=== PATIENT | male | born 1970 | race Caucasian/White ===

== ENCOUNTER 2017-03-12 20:00 | Emergency (ER) | payer BC, OTHER ==
[2017-03-12] MEDS ORDERED: Ibuprofen 800 MG Tab PO ONE (20:26)
--- NOTE | 2017-03-12 20:29 | EDM.PDOC ---
ED HPI GENERAL MEDICAL PROBLEM - General Chief Complaint: Lower Extremity Injury/Pain Stated Complaint: FRACTION LT LEG Time Seen by Provider: 03/12/17 20:22 - History of Present Illness INITIAL COMMENTS - FREE TEXT/NARRATIVE: HISTORY AND PHYSICAL: History of present illness: The patient is a 47-year-old male who presents with complaints of left lower leg and ankle pain that started 4 days ago. The patient states he [facility] and had shackles on his ankles and he tripped going up the stairs but did not complete full down. Since that time he has had pain in the area and he is concerned that the area is broken. He has a history of a fracture with surgical repair in the past when he was 16 years old. He says the pain is worse when he weight bears and moves his foot up and down. He has no neurosensory changes in the foot. He has no proximal knee hip or thigh pain. He has no head neck or back pain and no systemic complaints. The patient states that he has not taken any medication for the discomfort. He has been walking on it and not elevating her icing the area. Review of systems: As per history of present illness and below otherwise all systems reviewed and negative. Past medical history: As per history of present illness and as reviewed below otherwise noncontributory. Surgical history: As per history of present illness and as reviewed below otherwise noncontributory. Social history: No reported history of drug or alcohol abuse. Family history: As per history of present illness and as reviewed below otherwise noncontributory. Physical exam: Gen.: Well-developed well-nourished man who is nontoxic and moves easily in the ED. Vital signs have been reviewed by me HEENT: Atraumatic, normocephalic, negative for conjunctival pallor or scleral icterus, mucous membranes moist, throat clear, neck supple, nontender, trachea midline. Lungs: Clear to auscultation, breath sounds equal bilaterally, chest nontender. Heart: S1S2, regular in rhythm no overt murmurs. Abdomen: Soft, nondistended, nontender. NABS. Pelvis: Stable nontender. Genitourinary: Deferred. Rectal: Deferred. Extremities: Atraumatic throughout all extremities including the left lower leg without any palpable bony deformities. There is mild tenderness and some soft tissue swelling/erythema at the area of the anterior lower leg and ankle again without any ecchymosis deformities or defects. Distally neurovascular is intact and there is no foot tenderness. Proximally the knee thigh and hip are without tenderness or deformities. The legs are, negative for cords or calf pain. Neurovascular unremarkable. Neuro: Awake, alert, oriented. Cranial nerves II through XII unremarkable. Cerebellum unremarkable. Motor and sensory unremarkable throughout. Exam nonfocal. Diagnostics: X-ray left leg and ankle Therapeutics: Motrin Impression: Left lower leg contusion Definitive disposition and diagnosis as appropriate pending reevaluation and review of above. left leg Pain Score (Numeric/FACES): 8 - Related Data Allergies Allergy/AdvReac Type Severity Reaction Status Date / Time No Known Allergies Allergy Verified 03/12/17 20:15 Home Meds: Home Meds . [No Known Home Meds] 03/12/17 [History] Past Medical History - Past Health History Medical/Surgical History: Denies Medical/Surgical History HEENT History: Reports: None Cardiovascular History: Reports: None Respiratory History: Reports: None Gastrointestinal History: Reports: None Genitourinary History: Reports: None Musculoskeletal History: Reports: None Neurological History: Reports: None Psychiatric History: Reports: None Endocrine/Metabolic History: Reports: None Hematologic History: Reports: None Dermatologic History: Reports: None - Infectious Disease History Infectious Disease History: Reports: Chicken Pox, Shingles Social & Family History - Family History Family Medical History: Noncontributory - Tobacco Use Smoking Status *Q: Current Every Day Smoker Years of Tobacco use: 32 Packs/Tins Daily: 1 - Recreational Drug Use Recreational Drug Use: No Review of Systems - Review of Systems Review Of Systems: ROS reveals no pertinent complaints other than HPI. ED EXAM, GENERAL - Physical Exam Exam: See Below (See dictation) Course - Vital Signs Last Recorded V/S: Last Vital Signs Temp 36.8 C 03/12/17 20:17 Pulse 66 03/12/17 20:17 Resp 20 03/12/17 20:17 BP 150/98 H 03/12/17 20:17 Pulse Ox 99 03/12/17 20:17 - Orders/Labs/Meds Orders: Active Orders 24 hr Category Date Time Status Ankle Min 3V Lt [CR] Stat Exams 03/12/17 20:26 Taken Tibia Fibula Lt [CR] Stat Exams 03/12/17 20:26 Taken Meds: Medications Discontinued Medications Generic Name Dose Route Start Last Admin Trade Name Gil PRN Reason Stop Dose Admin Ibuprofen 800 mg 03/12/17 20:26 03/12/17 20:45 Motrin PO 03/12/17 20:27 800 mg ONETIME ONE Administration Departure - Departure Time of Disposition: 20:58 Disposition: Home, Self-Care 01 Condition: Good Clinical Impression: Contusion of leg, left Qualifiers: Encounter type: initial encounter Qualified Code(s): S80.12XA - Contusion of left lower leg, initial encounter - Discharge Information Forms: ED Department Discharge Additional Instructions: The following information is given to patients seen in the emergency department who are being discharged to home. This information is to outline your options for follow-up care. We provide all patients seen in our emergency department with a follow-up referral. The need for follow-up, as well as the timing and circumstances, are variable depending upon the specifics of your emergency department visit. If you don't have a primary care physician on staff, we will provide you with a referral. We always advise you to contact your personal physician following an emergency department visit to inform them of the circumstance of the visit and for follow-up with them and/or the need for any referrals to a consulting specialist. The emergency department will also refer you to a specialist when appropriate. This referral assures that you have the opportunity for followup care with a specialist. All of these measure are taken in an effort to provide you with optimal care, which includes your followup. Under all circumstances we always encourage you to contact your private physician who remains a resource for coordinating your care. When calling for followup care, please make the office aware that this follow-up is from your recent emergency room visit. If for any reason you are refused follow-up, please contact the [facility] emergency department at and ask to speak to the emergency department charge nurse. [facility]--Orthopedic clinic Professional Building [address] [place] [id number] [facility]- Internal Medicine and Family [place] [id number] [place] [id number] Please use [id number] ibuprofen/Motrin or Tylenol for pain, ice and elevate after activities and follow-up with our orthopedics clinic or with primary care as needed for further evaluation and care. Return to ER as needed and as discussed - My Orders Last 24 Hours: My Active Orders 03/12/17 20:26 Ankle Min 3V Lt [CR] Stat Tibia Fibula Lt [CR] Stat - Assessment/Plan Last 24 Hours: My Active Orders 03/12/17 20:26 Ankle Min 3V Lt [CR] Stat Tibia Fibula Lt [CR] Stat
[2017-03-12 21:51] VITALS: BP 144/89
--- NOTE | 2017-03-14 11:32 | CR ---
EXAM DATE: 03/12/17 PATIENT'S AGE: 47 Patient: CYN COPE Facility: [place], [place] Site . Site : 1970 Study: XRay Extremity Left TIB FIB [id number]/15/2017 8:48:44 PM Ordering Physician: Conor Bowden Final Report: INDICATION: Pain following fall 1 week prior. History of fracture TECHNIQUE: Two views left tibia and fibula COMPARISON: None FINDINGS: Bones: Alignment is normal. No fractures. Probable remote fracture mid shaft left tibia. Joint spaces: Unremarkable. Soft tissues: Unremarkable. IMPRESSION: No evidence of acute trauma. Dictated by Richardson Rushing MD @ 03/12/2017 8:55:09 PM Dictated by: Richardson Rushing MD @ 03/12/2017 20:55:15 (Electronic Signature) Report Signed by Proxy. MTDByron
--- NOTE | 2017-03-14 11:32 | CR ---
EXAM DATE: 03/12/17 PATIENT'S AGE: 47 Patient: CYN COPE Facility: [place], [place] Site . Site : 1970 Study: XRay Extremity Left ANKLE [id number]/15/2017 8:45:37 PM Ordering Physician: Conor Bowden Final Report: INDICATION: PAIN AFTER SLIPPING AND FALLING A WEEK AGO. HX OF FRACTURE IN LEG 30 + YEARS AGO TECHNIQUE: Left ankle 3 views. COMPARISON: None. FINDINGS: Bones: Alignment is normal. No fractures or bone lesions. Joint spaces: Unremarkable. Soft tissues: Unremarkable. IMPRESSION: Unremarkable left ankle. Dictated by: Richardson Rushing MD @ 03/12/2017 20:56:37 (Electronic Signature) Report Signed by Proxy. RITU
== END 2017-03-12 21:15 | disposition home or self-care (01) ==
LOC: MW.ED 20:00
DX: S80.12XA Contusion of left lower leg, initial encounter (principal); F17.210 Nicotine dependence, cigarettes, uncomplicated; X58.XXXA Exposure to other specified factors, initial encounter
CPT/HCPCS: 73590; 73610; 99283; A9270; 99282

== ENCOUNTER 2018-02-12 21:58 | Emergency (ER) | payer SELFPAY ==
[2018-02-12] MEDS ORDERED: Sodium Chloride 0.9% 1,000 ML IV ONE (22:01)
[2018-02-12] MEDS ORDERED: Aspirin 81 MG Tab.Chew PO ONE (22:01)
--- NOTE | 2018-02-12 22:02 | EDM.PDOC ---
ED HPI GENERAL MEDICAL PROBLEM - General Stated Complaint: CHEST PAIN AND DIFFICUTY BREATHING Time Seen by Provider: 02/12/18 22:02 Source of Information: Reports: Patient - History of Present Illness INITIAL COMMENTS - FREE TEXT/NARRATIVE: HISTORY AND PHYSICAL: History of present illness: [Patient presents with complaint of chest discomfort for 24 hours not associated with shortness of breath or diaphoresis no fever nausea vomiting chills sweats no chest headache dizziness or palpitation no bowel or urine symptoms Patient denies chronic illness disease her medications Patient admits to previous cocaine use but he has not used cocaine in quite some time per patient he denies methamphetamine use however drug screen is positive Denies hallucinations visual or audio ] Review of systems: As per history of present illness and below otherwise all systems reviewed and negative. Past medical history: As per history of present illness and as reviewed below otherwise noncontributory. Surgical history: As per history of present illness and as reviewed below otherwise noncontributory. Social history: No reported history of drug or alcohol abuse. Family history: As per history of present illness and as reviewed below otherwise noncontributory. Physical exam: HEENT: Atraumatic, normocephalic, pupils reactive, negative for conjunctival pallor or scleral icterus, mucous membranes moist, throat clear, neck supple, nontender, trachea midline. Lungs: Clear to auscultation, breath sounds equal bilaterally, chest nontender. Heart: S1S2, regular, negative for clicks, rubs, or JVD. Abdomen: Soft, nondistended, nontender. Negative for masses or hepatosplenomegaly. Negative for costovertebral tenderness. Pelvis: Stable nontender. Genitourinary: Deferred. Rectal: Deferred. Extremities: Atraumatic, negative for cords or calf pain. Neurovascular unremarkable. Neuro: Awake, alert, oriented. Cranial nerves II through XII unremarkable. Cerebellum unremarkable. Motor and sensory unremarkable throughout. Exam nonfocal. Diagnostics: [CBC CMP troponin lipase UA drug screen EKG with repeat Chest 1 view ] Therapeutics: [ liter normal saline bolus Aspirin 324 mg chewable ] Impression: [ dehydration sinus tachycardia Methamphetamine use abuse] Definitive disposition and diagnosis as appropriate pending reevaluation and review of above. Chest Pain Score (Numeric/FACES): 8 - Related Data Allergies Allergy/AdvReac Type Severity Reaction Status Date / Time No Known Allergies Allergy Verified 03/12/17 20:15 Home Meds: Home Meds . [No Known Home Meds] 03/12/17 [History] Past Medical History - Past Health History Medical/Surgical History: Denies Medical/Surgical History HEENT History: Reports: None Cardiovascular History: Reports: None Respiratory History: Reports: None Gastrointestinal History: Reports: None Genitourinary History: Reports: None Musculoskeletal History: Reports: None Neurological History: Reports: None Psychiatric History: Reports: None Endocrine/Metabolic History: Reports: None Hematologic History: Reports: None Dermatologic History: Reports: None - Infectious Disease History Infectious Disease History: Reports: Chicken Pox, Shingles Social & Family History - Family History Family Medical History: Noncontributory ED ROS GENERAL - Review of Systems Review Of Systems: See Below ED EXAM, GENERAL - Physical Exam Exam: See Below Course - Vital Signs Last Recorded V/S: Last Vital Signs Temp 99 F 02/12/18 22:15 Pulse 147 H 02/12/18 22:15 Resp 22 H 02/12/18 22:15 BP 144/81 H 02/12/18 22:15 Pulse Ox 99 02/12/18 22:15 - Orders/Labs/Meds Orders: Active Orders 24 hr Category Date Time Status EKG 12 Lead [EKG Documentation Completion] [RC] STAT Care 02/12/18 22:54 Active EKG Documentation Completion [RC] STAT Care 02/12/18 22:01 Active Chest 1V Frontal [CR] Stat Exams 02/12/18 22:01 Taken DRUG SCREEN, URINE [URCHEM] Stat Lab 02/12/18 22:10 Ordered UA W/MICROSCOPIC [URIN] Stat Lab 02/12/18 22:10 Ordered Labs: Laboratory Tests 02/12/18 02/12/18 02/12/18 Range/Units 22:05 22:05 22:05 WBC 17.89 H (4.0-11.0) K/uL RBC 5.37 (4.50-5.90) M/uL Hgb 15.9 (13.0-17.0) g/dL Hct 46.7 (38.0-50.0) % MCV 87.0 (80.0-98.0) fL MCH 29.6 (27.0-32.0) pg MCHC 34.0 (31.0-37.0) g/dL RDW Std Deviation 42.9 (28.0-62.0) fl RDW Coeff of Liat 14 (11.0-15.0) % Plt Count 364 (150-400) K/uL MPV 9.70 (7.40-12.00) fL Neut % (Auto) 63.6 (48.0-80.0) % Lymph % (Auto) 21.2 (16.0-40.0) % [place] % (Auto) 14.6 (0.0-15.0) % Eos % (Auto) 0.4 (0.0-7.0) % Baso % (Auto) 0.2 (0.0-1.5) % Neut # (Auto) 11.4 H (1.4-5.7) K/uL Lymph # (Auto) 3.8 H (0.6-2.4) K/uL [place] # (Auto) 2.6 H (0.0-0.8) K/uL Eos # (Auto) 0.1 (0.0-0.7) K/uL Baso # (Auto) 0.0 (0.0-0.1) K/uL Nucleated RBC % 0.0 /100WBC Nucleated RBCs # 0 K/uL INR 1.09 Sodium 135 L (136-148) mmol/L Potassium 4.3 (3.5-5.1) mmol/L Chloride 98 (98-107) mmol/L Carbon Dioxide 28.0 (21.0-32.0) mmol/L BUN 15 (7.0-18.0) mg/dL Creatinine 1.3 (0.8-1.3) mg/dL Est Cr Clr Drug Dosing 69.49 mL/min Estimated GFR (MDRD) 58.9 ml/min Glucose 131 H (74-106) mg/dL Calcium 9.1 (8.5-10.1) mg/dL Total Bilirubin 1.3 H (0.2-1.0) mg/dL AST 84 H (15-37) IU/L ALT 138 H (14-63) IU/L Alkaline Phosphatase 128 H (46-116) U/L Troponin I < 0.050 (0.000-0.056) ng/mL Total Protein 8.0 (6.4-8.2) g/dL Albumin 3.5 (3.4-5.0) g/dL Globulin 4.5 H (2.0-3.5) g/dL Albumin/Globulin Ratio 0.8 L (1.3-2.8) Lipase 96 (73-393) U/L Urine Color Urine Appearance Urine pH (5.0-8.0) Ur Specific [place] (1.001-1.035) Urine Protein (NEGATIVE) mg/dL Urine Glucose (UA) (NEGATIVE) mg/dL Urine Ketones (NEGATIVE) mg/dL Urine Occult Blood (NEGATIVE) Urine Nitrite (NEGATIVE) Urine Bilirubin (NEGATIVE) Urine Ictotest Urine Urobilinogen (<2.0) EU/dL Ur Leukocyte Esterase (NEGATIVE) Urine RBC (0-2/HPF) Urine WBC (0-5/HPF) Ur Epithelial Cells (NONE-FEW) Urine Bacteria (NEGATIVE) Urine Opiates Screen (NEGATIVE) Ur Oxycodone Screen (NEGATIVE) Urine Methadone Screen (NEGATIVE) Ur Barbiturates Screen (NEGATIVE) Ur Phencyclidine Scrn (NEGATIVE) Ur Amphetamine Screen (NEGATIVE) U Methamphetamines Scrn (NEGATIVE) U Benzodiazepines Scrn (NEGATIVE) U Cocaine Metab Screen (NEGATIVE) U Marijuana (THC) Screen (NEGATIVE) 02/12/18 02/12/18 Range/Units 22:10 22:10 WBC (4.0-11.0) K/uL RBC (4.50-5.90) M/uL Hgb (13.0-17.0) g/dL Hct (38.0-50.0) % MCV (80.0-98.0) fL MCH (27.0-32.0) pg MCHC (31.0-37.0) g/dL RDW Std Deviation (28.0-62.0) fl RDW Coeff of Liat (11.0-15.0) % Plt Count (150-400) K/uL MPV (7.40-12.00) fL Neut % (Auto) (48.0-80.0) % Lymph % (Auto) (16.0-40.0) % [place] % (Auto) (0.0-15.0) % Eos % (Auto) (0.0-7.0) % Baso % (Auto) (0.0-1.5) % Neut # (Auto) (1.4-5.7) K/uL Lymph # (Auto) (0.6-2.4) K/uL [place] # (Auto) (0.0-0.8) K/uL Eos # (Auto) (0.0-0.7) K/uL Baso # (Auto) (0.0-0.1) K/uL Nucleated RBC % /100WBC Nucleated RBCs # K/uL INR Sodium (136-148) mmol/L Potassium (3.5-5.1) mmol/L Chloride (98-107) mmol/L Carbon Dioxide (21.0-32.0) mmol/L BUN (7.0-18.0) mg/dL Creatinine (0.8-1.3) mg/dL Est Cr Clr Drug Dosing mL/min Estimated GFR (MDRD) ml/min Glucose (74-106) mg/dL Calcium (8.5-10.1) mg/dL Total Bilirubin (0.2-1.0) mg/dL AST (15-37) IU/L ALT (14-63) IU/L Alkaline Phosphatase (46-116) U/L Troponin I (0.000-0.056) ng/mL Total Protein (6.4-8.2) g/dL Albumin (3.4-5.0) g/dL Globulin (2.0-3.5) g/dL Albumin/Globulin Ratio (1.3-2.8) Lipase (73-393) U/L Urine Color YELLOW Urine Appearance CLEAR Urine pH 6.0 (5.0-8.0) Ur Specific [place] 1.015 (1.001-1.035) Urine Protein NEGATIVE (NEGATIVE) mg/dL Urine Glucose (UA) NEGATIVE (NEGATIVE) mg/dL Urine Ketones NEGATIVE (NEGATIVE) mg/dL Urine Occult Blood NEGATIVE (NEGATIVE) Urine Nitrite NEGATIVE (NEGATIVE) Urine Bilirubin SMALL H (NEGATIVE) Urine Ictotest NEGATIVE Urine Urobilinogen 2.0 H (<2.0) EU/dL Ur Leukocyte Esterase NEGATIVE (NEGATIVE) Urine RBC 0-2 (0-2/HPF) Urine WBC 0-2 (0-5/HPF) Ur Epithelial Cells RARE (NONE-FEW) Urine Bacteria FEW (NEGATIVE) Urine Opiates Screen NEGATIVE (NEGATIVE) Ur Oxycodone Screen NEGATIVE (NEGATIVE) Urine Methadone Screen NEGATIVE (NEGATIVE) Ur Barbiturates Screen NEGATIVE (NEGATIVE) Ur Phencyclidine Scrn NEGATIVE (NEGATIVE) Ur Amphetamine Screen POSITIVE (NEGATIVE) U Methamphetamines Scrn POSITIVE (NEGATIVE) U Benzodiazepines Scrn NEGATIVE (NEGATIVE) U Cocaine Metab Screen NEGATIVE (NEGATIVE) U Marijuana (THC) Screen NEGATIVE (NEGATIVE) Meds: Medications Discontinued Medications Generic Name Dose Route Start Last Admin Trade Name Gil PRN Reason Stop Dose Admin Aspirin 324 mg 02/12/18 22:01 02/12/18 22:16 Aspirin PO 02/12/18 22:02 324 mg ONETIME ONE Administration Sodium Chloride 1,000 mls @ 999 mls/hr 02/12/18 22:01 02/12/18 22:16 Normal Saline IV 02/12/18 23:01 999 mls/hr STAT ONE Administration Pantoprazole Sodium 80 mg 02/12/18 22:16 02/12/18 22:30 Protonix Iv IVPUSH 02/12/18 22:17 80 mg .BOLUS ONE Administration Departure - Departure Time of Disposition: 23:06 Disposition: Home, Self-Care 01 Condition: Good Clinical Impression: Dehydration, Substance abuse - Discharge Information Additional Instructions: The following information is given to patients seen in the emergency department who are being discharged to home. This information is to outline your options for follow-up care. We provide all patients seen in our emergency department with a follow-up referral. The need for follow-up, as well as the timing and circumstances, are variable depending upon the specifics of your emergency department visit. If you don't have a primary care physician on staff, we will provide you with a referral. We always advise you to contact your personal physician following an emergency department visit to inform them of the circumstance of the visit and for follow-up with them and/or the need for any referrals to a consulting specialist. The emergency department will also refer you to a specialist when appropriate. This referral assures that you have the opportunity for follow-up care with a specialist. All of these measure are taken in an effort to provide you with optimal care, which includes your follow-up. Under all circumstances we always encourage you to contact your private physician who remains a resource for coordinating your care. When calling for follow-up care, please make the office aware that this follow-up is from your recent emergency room visit. If for any reason you are refused follow-up, please contact the [facility] emergency department at and asked to speak to the emergency department charge nurse. - My Orders Last 24 Hours: My Active Orders 02/12/18 22:01 EKG Documentation Completion [RC] STAT Chest 1V Frontal [CR] Stat 02/12/18 22:10 DRUG SCREEN, URINE [URCHEM] Stat UA W/MICROSCOPIC [URIN] Stat 02/12/18 22:54 EKG 12 Lead [EKG Documentation Completion] [RC] STAT - Assessment/Plan Last 24 Hours: My Active Orders 02/12/18 22:01 EKG Documentation Completion [RC] STAT Chest 1V Frontal [CR] Stat 02/12/18 22:10 DRUG SCREEN, URINE [URCHEM] Stat UA W/MICROSCOPIC [URIN] Stat 02/12/18 22:54 EKG 12 Lead [EKG Documentation Completion] [RC] STAT
[2018-02-12] MEDS ORDERED: Pantoprazole 40 MG Vial IVPUSH ONE (22:16)
[2018-02-12 22:59] LABS: CHLORIDE,CL 98 mmol/L (98-107); SODIUM,NA 135 mmol/L (136-148)
[2018-02-12 23:55] VITALS: BP 107/80
--- NOTE | 2018-02-13 16:21 | CR ---
EXAM DATE: 02/12/18 PATIENT'S AGE: 48 Patient: CYN COPE Facility: [place], [place] Site . Site : 1970 Study: XRay Chest [id number]/17/2018 10:31:23 PM Ordering Physician: Kaushik Oliva Final Report: INDICATION: pain TECHNIQUE: Chest 1 view. COMPARISON: None. FINDINGS: Cardiovascular and mediastinum: Heart size and vasculature are normal in caliber and appearance. Mediastinum is within normal limits. Lungs and pleural space: Lungs are clear. No sign of infiltrate or mass. No sign of pleural effusion. No pneumothorax. Bones and soft tissues: No significant findings. IMPRESSION: Unremarkable chest. Dictated by: Richardson Rushing MD @ 02/12/2018 22:51:33 (Electronic Signature) Report Signed by Proxy. [facility] H[facility]ITALByron
== END 2018-02-12 23:58 | disposition home or self-care (01) ==
LOC: MW.ED 21:58
DX: E86.0 Dehydration (principal); F15.10 Other stimulant abuse, uncomplicated; R00.0 Tachycardia, unspecified
CPT/HCPCS: 36415; 71045; 80053; 80305; 81001; 83690; 84484; 85025; 85610; 93005; 96361; 96374; 99285; A9270; C9113; J7040; 99283

== ENCOUNTER 2018-09-16 18:02 | Emergency (ER) | payer SELFPAY ==
[2018-09-16] MEDS ORDERED: Ondansetron 4 MG/2 ML SDV IVPUSH ONE (18:04)
[2018-09-16] MEDS ORDERED: Sodium Chloride 0.9% 1,000 ML IV ONE (18:04)
[2018-09-16] MEDS ORDERED: Ketorolac 30 MG/ML SDV IVPUSH ONE (18:04)
[2018-09-16] MEDS ORDERED: Ondansetron 4 MG/2 ML SDV ONE (18:16)
[2018-09-16] MEDS ORDERED: Ketorolac 30 MG/ML SDV ONE (18:16)
[2018-09-16] MEDS ORDERED: HYDROmorphone 1 MG/ML Syringe IVPUSH ONE (18:17)
--- NOTE | 2018-09-16 18:17 | EDM.PDOC ---
ED HPI GENERAL MEDICAL PROBLEM - General Chief Complaint: Abdominal Pain Stated Complaint: PT HAS STOMACH PAINS Time Seen by Provider: 09/16/18 18:06 Source of Information: Reports: Patient History Limitations: Reports: No Limitations - History of Present Illness INITIAL COMMENTS - FREE TEXT/NARRATIVE: HISTORY AND PHYSICAL: History of present illness: Patient is a 48-year-old male who presents to the emergency room by ground ambulance with concerns of right lower quadrant pain. He states approximately 1 hour prior to his arrival he started having intense right lower quadrant pain and became diaphoretic. He states this pain starts in the right lower quadrant and goes into the groin and has an aching sensation in the right testicle. Prior to the onset of pain he said he felt well and had no concerns. He denies any fever, chills, chest pain, shortness of breath or cough. Denies any nausea, vomiting, diarrhea, constipation. He states he has not voided since the start of this pain but did not have prior dysuria. He has no significant history of medical problems or past surgeries. Review of systems: As per history of present illness and below otherwise all systems reviewed and negative. Past medical history: As per history of present illness and as reviewed below otherwise noncontributory. Surgical history: As per history of present illness and as reviewed below otherwise noncontributory. Social history: See social history for further information Family history: As per history of present illness and as reviewed below otherwise noncontributory. Physical exam: General: Well-developed and well-nourished 48-year-old male. Alert and oriented. Nontoxic appearing and in no acute distress HEENT: Atraumatic, normocephalic, pupils equal and reactive bilaterally, negative for conjunctival pallor or scleral icterus, mucous membranes moist, TMs normal bilaterally, throat clear, neck supple, nontender, trachea midline. No drooling or trismus noted. No meningeal signs. No hot potato voice noted. Lungs: Clear to auscultation, breath sounds equal bilaterally, chest nontender. Heart: S1S2, regular rate and rhythm without overt murmur Abdomen: Soft, nondistended, right lower quadrant tenderness with palpation. Negative for masses or hepatosplenomegaly. Negative for costovertebral tenderness. Pelvis: Stable nontender. Genitourinary: Deferred. Rectal: Deferred. Skin: Intact, warm, dry. No lesions or rashes noted. Extremities: Atraumatic, moves all extremities per self without difficulty or deficits, negative for cords or calf pain. Neurovascular unremarkable. Neuro: Awake, alert, oriented. Cranial nerves II through XII unremarkable. Cerebellum unremarkable. Motor and sensory unremarkable throughout. Exam nonfocal. Notes: Ultrasound of the scrotal contents shows no acute abnormality. No evidence of testicular torsion. There is a tiny 3 mm right epididymitis this or spermatocele. CT shows an obstructing 1-2 mm stone at the right UVJ with mild hydronephrosis. Diagnostics: CBC, CMP, UA, lipase, CT abdomen and pelvis, testicular ultrasound, UC Therapeutics: IV fluid, Zofran, Toradol, Dilaudid, Rocephin Prescription: [place] Flomax Impression: Kidney Stone, right Plan: 1. Increase your oral fluids. Strain urine as we discussed. 2. Take your medications as directed. 3. Please follow-up with the urologist next week. Return to the ED as needed and as discussed. Definitive disposition and diagnosis as appropriate pending reevaluation and review of above. Right Lower Abdominal Pain Score (Numeric/FACES): 10 - Related Data Allergies Allergy/AdvReac Type Severity Reaction Status Date / Time No Known Allergies Allergy Verified 03/12/17 20:15 Home Meds: Home Meds . [No Known Home Meds] 03/12/17 [History] Past Medical History - Past Health History Medical/Surgical History: Denies Medical/Surgical History HEENT History: Reports: None Cardiovascular History: Reports: None Respiratory History: Reports: None Gastrointestinal History: Reports: None Genitourinary History: Reports: None Musculoskeletal History: Reports: None Neurological History: Reports: None Psychiatric History: Reports: None Endocrine/Metabolic History: Reports: None Hematologic History: Reports: None Dermatologic History: Reports: None - Infectious Disease History Infectious Disease History: Reports: Chicken Pox, Shingles Social & Family History - Family History Family Medical History: Noncontributory ED ROS GENERAL - Review of Systems Review Of Systems: ROS reveals no pertinent complaints other than HPI. ED EXAM, GI/ABD - Physical Exam Exam: See Below (See dictation) Course - Vital Signs Last Recorded V/S: Last Vital Signs Temp 94.8 F L 09/16/18 18:02 Pulse 72 09/16/18 20:20 Resp 18 09/16/18 20:20 BP 118/78 09/16/18 20:20 Pulse Ox 97 09/16/18 20:20 - Orders/Labs/Meds Orders: Active Orders 24 hr Category Date Time Status CULTURE URINE [RM] Stat Lab 09/16/18 21:59 Ordered cefTRIAXone [Rocephin] Med 09/16/18 21:59 Once 1 gm IM ONETIME ONE Medication Orders Ceftriaxone Sodium (Rocephin) 1 gm IM ONETIME ONE Stop: 09/16/18 22:00 Labs: Laboratory Tests 09/16/18 09/16/18 09/16/18 Range/Units 18:04 18:04 21:00 WBC 11.81 H (4.0-11.0) K/uL RBC 4.92 (4.50-5.90) M/uL Hgb 14.1 (13.0-17.0) g/dL Hct 42.8 (38.0-50.0) % MCV 87.0 (80.0-98.0) fL MCH 28.7 (27.0-32.0) pg MCHC 32.9 (31.0-37.0) g/dL RDW Std Deviation 44.3 (28.0-62.0) fl RDW Coeff of Liat 14 (11.0-15.0) % Plt Count 326 (150-400) K/uL MPV 9.60 (7.40-12.00) fL Neut % (Auto) 51.8 (48.0-80.0) % Lymph % (Auto) 40.2 H (16.0-40.0) % [place] % (Auto) 5.1 (0.0-15.0) % Eos % (Auto) 2.6 (0.0-7.0) % Baso % (Auto) 0.3 (0.0-1.5) % Neut # (Auto) 6.1 H (1.4-5.7) K/uL Lymph # (Auto) 4.8 H (0.6-2.4) K/uL [place] # (Auto) 0.6 (0.0-0.8) K/uL Eos # (Auto) 0.3 (0.0-0.7) K/uL Baso # (Auto) 0.0 (0.0-0.1) K/uL Nucleated RBC % 0.0 /100WBC Nucleated RBCs # 0 K/uL Sodium 142 (136-148) mmol/L Potassium 3.5 (3.5-5.1) mmol/L Chloride 108 H (98-107) mmol/L Carbon Dioxide 28.1 (21.0-32.0) mmol/L BUN 15 (7.0-18.0) mg/dL Creatinine 1.2 (0.8-1.3) mg/dL Est Cr Clr Drug Dosing TNP Estimated GFR (MDRD) > 60.0 ml/min Glucose 194 H (74-106) mg/dL Calcium 9.2 (8.5-10.1) mg/dL Total Bilirubin 0.4 (0.2-1.0) mg/dL AST 9 L (15-37) IU/L ALT 36 (14-63) IU/L Alkaline Phosphatase 71 (46-116) U/L Total Protein 6.7 (6.4-8.2) g/dL Albumin 3.2 L (3.4-5.0) g/dL Globulin 3.5 (2.6-4.0) g/dL Albumin/Globulin Ratio 0.9 (0.9-1.6) Lipase 114 (73-393) U/L Urine Color YELLOW Urine Appearance HAZY Urine pH 6.0 (5.0-8.0) Ur Specific [place] 1.010 (1.001-1.035) Urine Protein NEGATIVE (NEGATIVE) mg/dL Urine Glucose (UA) NEGATIVE (NEGATIVE) mg/dL Urine Ketones NEGATIVE (NEGATIVE) mg/dL Urine Occult Blood MODERATE H (NEGATIVE) Urine Nitrite NEGATIVE (NEGATIVE) Urine Bilirubin NEGATIVE (NEGATIVE) Urine Urobilinogen 0.2 (<2.0) EU/dL Ur Leukocyte Esterase NEGATIVE (NEGATIVE) Urine RBC 3-5 (0-2/HPF) Urine WBC 0-2 (0-5/HPF) Ur Epithelial Cells OCCASIONAL (NONE-FEW) Urine Bacteria FEW (NEGATIVE) Meds: Medications Generic Name Dose Route Start Last Admin Trade Name Freq PRN Reason Stop Dose Admin Ceftriaxone Sodium 1 gm 09/16/18 21:59 Rocephin IM 09/16/18 22:00 ONETIME ONE Discontinued Medications Generic Name Dose Route Start Last Admin Trade Name Freq PRN Reason Stop Dose Admin Hydromorphone HCl 1 mg 09/16/18 18:17 09/16/18 19:45 Dilaudid IVPUSH 09/16/18 18:18 1 mg ONETIME ONE Administration Sodium Chloride 1,000 mls @ 999 mls/hr 09/16/18 18:04 09/16/18 18:10 Normal Saline IV 09/16/18 19:04 999 mls/hr STAT ONE Administration Iopamidol 100 ml 09/16/18 19:17 09/16/18 19:19 Isovue-370 (76%) IVPUSH 09/16/18 19:18 100 ml ONETIME ONE Administration Ketorolac Tromethamine 30 mg 09/16/18 18:04 09/16/18 18:16 Toradol IVPUSH 09/16/18 18:05 30 mg ONETIME ONE Administration Ketorolac Tromethamine Confirm 09/16/18 18:16 09/16/18 19:45 Toradol Administered 09/16/18 18:17 Not Given Dose 30 mg .ROUTE .STK-MED ONE Ondansetron HCl 8 mg 09/16/18 18:04 09/16/18 18:15 Zofran IVPUSH 09/16/18 18:05 8 mg ONETIME ONE Administration Ondansetron HCl Confirm 09/16/18 18:16 09/16/18 19:45 Zofran Administered 09/16/18 18:17 Not Given Dose 4 mg .ROUTE .STK-MED ONE Tamsulosin HCl 0.4 mg 09/16/18 20:57 09/16/18 21:03 Flomax PO 09/16/18 20:58 0.4 mg ONETIME ONE Administration Departure - Departure Time of Disposition: 21:52 Disposition: Home, Self-Care 01 Clinical Impression: Kidney stone on right side - Discharge Information Instructions: Kidney Stones, [id number] Referrals: PCP,None [Primary Care Provider] - Forms: ED Department Discharge Additional Instructions: The following information is given to patients seen in the emergency department who are being discharged to home. This information is to outline your options for follow-up care. We provide all patients seen in our emergency department with a follow-up referral. The need for follow-up, as well as the timing and circumstances, are variable depending upon the specifics of your emergency department visit. If you don't have a primary care physician on staff, we will provide you with a referral. We always advise you to contact your personal physician following an emergency department visit to inform them of the circumstance of the visit and for follow-up with them and/or the need for any referrals to a consulting specialist. The emergency department will also refer you to a specialist when appropriate. This referral assures that you have the opportunity for follow-up care with a specialist. All of these measure are taken in an effort to provide you with optimal care, which includes your follow-up. Under all circumstances we always encourage you to contact your private physician who remains a resource for coordinating your care. When calling for follow-up care, please make the office aware that this follow-up is from your recent emergency room visit. If for any reason you are refused follow-up, please contact the [facility] Emergency Department at and asked to speak to the emergency department charge nurse. [facility] Primary [facility] [address] [place] [address] [address] [facility] Specialty Care - Urology [address] [place] [id number] 1. Increase your oral fluids. Strain urine as we discussed. 2. Take your medications as directed. 3. Please follow-up with the urologist next week. Return to the ED as needed and as discussed. - My Orders Last 24 Hours: My Active Orders 09/16/18 21:59 CULTURE URINE [RM] Stat cefTRIAXone [Rocephin] 1 gm IM ONETIME ONE - Assessment/Plan Last 24 Hours: My Active Orders 09/16/18 21:59 CULTURE URINE [RM] Stat cefTRIAXone [Rocephin] 1 gm IM ONETIME ONE
[2018-09-16 18:39] LABS: CHLORIDE,CL 108 mmol/L (98-107); SODIUM,NA 142 mmol/L (136-148)
[2018-09-16] MEDS ORDERED: Iopamidol 755 Mg/ML 100 ML Bottle IVPUSH ONE (19:17)
--- NOTE | 2018-09-16 20:16 | US ---
INDICATION: right scrotal pain SCROTAL ULTRASOUND Multiple sonographic images of the scrotum were performed. The testes appear normal bilaterally, the right testis measuring 4.7 x 2.0 x 3.3 cm and the left testis measuring 4.6 x 1.9 x 3.2 cm. No intratesticular masses are seen. Intratesticular Doppler blood flow is demonstrated bilaterally. The epididymides are unremarkable aside from an incidental 3 millimeters epididymal cyst or spermatocele in the right epididymis . A trace right-sided hydrocele is noted. IMPRESSION: 1. No acute abnormality identified. No evidence of testicular torsion. 2. Tiny 3 millimeter right epididymal cyst or spermatocele. CAROLINA BERGMAN MD [employer] Dictated by Amilcar Bergman MD @ 09/16/2018 8:13:17 PM Dictated by: Amilcar Bergman MD @ 09/16/2018 20:14:42 (Electronically Signed)
--- NOTE | 2018-09-16 20:40 | CT ---
INDICATION: Right lower quadrant pain. CT ABDOMEN AND PELVIS WITH CONTRAST TECHNIQUE: Multidetector CT imaging was performed through the abdomen and pelvis following intravenous contrast administration using 100 mL Isovue 370. Coronal and sagittal reconstructions were generated. COMPARISON: None. FINDINGS: Lower chest: Mild to moderate bibasilar lung atelectasis. Liver: Unremarkable aside from a very small subcentimeter hypodensity in the inferior right hepatic lobe on image 60 which is not well characterized but most likely benign. Gallbladder and bile ducts: No gallbladder wall thickening or calcified gallstones. No biliary dilation identified. Pancreas: Unremarkable. Spleen: Normal. Adrenals: No nodules or masses. Kidneys, ureters, and urinary bladder: Tiny 1-2 millimeter stone at the right ureteropelvic junction producing mild right hydroureteronephrosis. Unremarkable left kidney. No bladder mass or definite wall thickening. Gastrointestinal tract: Normal caliber bowel without wall thickening. The appendix is normal. Vascular structures: Mild aortoiliac atherosclerotic calcifications. Peritoneum: No free air, abscess, or significant free fluid. Lymph nodes: No pathologically enlarged nodes identified. Reproductive organs: Borderline prostatic enlargement. Bones: Normal for age. IMPRESSION: 1. Obstructing 1-2 millimeter stone at the right ureterovesical junction producing mild right hydroureteronephrosis. 2. Nonacute additional findings as detailed above. CAROLINA BERGMAN MD [employer] Dictated by Amilcar Bergman MD @ 09/16/2018 8:39:02 PM Dictated by: Amilacr Bergman MD @ 09/16/2018 20:39:16 (Electronically Signed)
[2018-09-16] MEDS ORDERED: Tamsulosin 0.4 MG Cap.ER PO ONE (20:57)
[2018-09-16] MEDS ORDERED: cefTRIAXone 1 GM Vial IM ONE (21:59)
[2018-09-16] MEDS ORDERED: Lidocaine 1% 2 ML ONE (22:05)
[2018-09-16] MEDS ORDERED: cefTRIAXone 1 GM in Lidocaine 1% 4 ML IM ONE (22:07)
[2018-09-16 22:11] VITALS: BP 109/60
== END 2018-09-16 22:30 | disposition home or self-care (01) ==
LOC: MW.ED 18:02
DX: N13.2 Hydronephrosis with renal and ureteral calculous obstruction (principal)
CPT/HCPCS: 36415; 74177; 76870; 80053; 81001; 83690; 85025; 87086; 96361; 96372; 96374; 96375; 99285; A9270; J0696; J1170; J1885; J2001; J2405; J7040; Q9967; 99283

== ENCOUNTER 2019-04-23 01:00 | Observation (INO) | payer OTHER ==
[2019-04-23] MEDS ORDERED: Sodium Chloride 0.9% 1,000 ML IV ONE (01:02)
[2019-04-23] MEDS ORDERED: Pantoprazole 40 MG Vial IVPUSH ONE (01:04)
--- NOTE | 2019-04-23 01:04 | EDM.PDOC ---
ED HPI GENERAL MEDICAL PROBLEM - General Stated Complaint: AMB. Time Seen by Provider: 04/23/19 01:02 Source of Information: Reports: Patient, EMS - History of Present Illness INITIAL COMMENTS - FREE TEXT/NARRATIVE: HISTORY AND PHYSICAL: History of present illness: [Patient presents from [facility] with chest pain for 1-1/2 hours via EMS He arrives in no apparent distress no fever nausea vomiting chills sweats no shortness breath headache dizziness or palpitation no diaphoresis no radiation arm neck or jaw EMS did provide aspirin 4 tablets as well as 2 doses of sublingual nitroglycerin no change in pain ] Review of systems: As per history of present illness and below otherwise all systems reviewed and negative. Past medical history: As per history of present illness and as reviewed below otherwise noncontributory. Surgical history: As per history of present illness and as reviewed below otherwise noncontributory. Social history: No reported history of drug or alcohol abuse. Family history: As per history of present illness and as reviewed below otherwise noncontributory. Physical exam: HEENT: Atraumatic, normocephalic, pupils reactive, negative for conjunctival pallor or scleral icterus, mucous membranes moist, throat clear, neck supple, nontender, trachea midline. Lungs: Clear to auscultation, breath sounds equal bilaterally, chest nontender. Heart: S1S2, regular, negative for clicks, rubs, or JVD. Abdomen: Soft, nondistended, nontender. Negative for masses or hepatosplenomegaly. Negative for costovertebral tenderness. Pelvis: Stable nontender. Genitourinary: Deferred. Rectal: Deferred. Extremities: Atraumatic, negative for cords or calf pain. Neurovascular unremarkable. Neuro: Awake, alert, oriented. Cranial nerves II through XII unremarkable. Cerebellum unremarkable. Motor and sensory unremarkable throughout. Exam nonfocal. Diagnostics: [CBC CMP UA troponin lipase EKG Chest 1 view ] Therapeutics: [Aspirin 324 mg provided via EMS Nitroglycerin ] sublingual 2 doses provided via EMS Proton X Normal saline Impression: [ atypical chest pain ] Possible malingering Definitive disposition and diagnosis as appropriate pending reevaluation and review of above. Chest Pain Pain Score (Numeric/FACES): 6 - Related Data Allergies Allergy/AdvReac Type Severity Reaction Status Date / Time No Known Allergies Allergy Verified 04/23/19 01:08 Home Meds: Home Meds . [No Known Home Meds] 03/12/17 [History] Past Medical History - Past Health History Medical/Surgical History: Denies Medical/Surgical History HEENT History: Reports: None Cardiovascular History: Reports: None Respiratory History: Reports: None Gastrointestinal History: Reports: None Genitourinary History: Reports: None Musculoskeletal History: Reports: None Neurological History: Reports: None Psychiatric History: Reports: None Endocrine/Metabolic History: Reports: None Hematologic History: Reports: None Immunologic History: Reports: None Oncologic (Cancer) History: Reports: None Dermatologic History: Reports: None - Infectious Disease History Infectious Disease History: Reports: Chicken Pox, Shingles Social & Family History - Family History Family Medical History: Noncontributory ED ROS GENERAL - Review of Systems Review Of Systems: See Below ED EXAM, GENERAL - Physical Exam Exam: See Below Course - Vital Signs Last Recorded V/S: Last Vital Signs Temp 97.4 F 04/23/19 01:05 Pulse 74 04/23/19 01:45 Resp 19 04/23/19 01:45 BP 118/70 04/23/19 01:45 Pulse Ox 100 04/23/19 01:45 - Orders/Labs/Meds Orders: Active Orders 24 hr Category Date Time Status EKG Documentation Completion [RC] STAT Care 04/23/19 01:02 Active UA RFX JULISA AND CULT IF INDIC [URIN] Stat Lab 04/23/19 01:02 Ordered Labs: Laboratory Tests 04/23/19 04/23/19 04/23/19 Range/Units 01:05 01:05 01:05 WBC 11.99 H (4.0-11.0) K/uL RBC 5.77 (4.50-5.90) M/uL Hgb 16.4 (13.0-17.0) g/dL Hct 48.6 (38.0-50.0) % MCV 84.2 (80.0-98.0) fL MCH 28.4 (27.0-32.0) pg MCHC 33.7 (31.0-37.0) g/dL RDW Std Deviation 41.4 (28.0-62.0) fl RDW Coeff of Liat 14 (11.0-15.0) % Plt Count 347 (150-400) K/uL MPV 9.50 (7.40-12.00) fL Neut % (Auto) 56.6 (48.0-80.0) % Lymph % (Auto) 35.2 (16.0-40.0) % [place] % (Auto) 5.7 (0.0-15.0) % Eos % (Auto) 2.3 (0.0-7.0) % Baso % (Auto) 0.2 (0.0-1.5) % Neut # (Auto) 6.8 H (1.4-5.7) K/uL Lymph # (Auto) 4.2 H (0.6-2.4) K/uL [place] # (Auto) 0.7 (0.0-0.8) K/uL Eos # (Auto) 0.3 (0.0-0.7) K/uL Baso # (Auto) 0.0 (0.0-0.1) K/uL Sodium 138 (136-148) mmol/L Potassium 4.1 (3.5-5.1) mmol/L Chloride 103 (98-107) mmol/L Carbon Dioxide 26.4 (21.0-32.0) mmol/L BUN 17 (7.0-18.0) mg/dL Creatinine 1.2 (0.8-1.3) mg/dL Est Cr Clr Drug Dosing 74.46 mL/min Estimated GFR (MDRD) > 60.0 ml/min Glucose 144 H (74-106) mg/dL Calcium 9.3 (8.5-10.1) mg/dL Total Bilirubin 0.4 (0.2-1.0) mg/dL AST 18 (15-37) IU/L ALT 41 (14-63) IU/L Alkaline Phosphatase 79 (46-116) U/L Troponin I < 0.050 (0.000-0.056) ng/mL C-Reactive Protein 0.20 (0.00-0.90) mg/dL Total Protein 7.0 (6.4-8.2) g/dL Albumin 3.4 (3.4-5.0) g/dL Globulin 3.6 (2.6-4.0) g/dL Albumin/Globulin Ratio 0.9 (0.9-1.6) Lipase 117 (73-393) U/L Meds: Medications Discontinued Medications Generic Name Dose Route Start Last Admin Trade Name iGl PRN Reason Stop Dose Admin Al Hydroxide/Mg Hydroxide 15 0 ml 04/23/19 01:44 04/23/19 01:53 ml/ Metoclopramide HCl 5 mg/ PO 04/23/19 01:45 15 each Lidocaine HCl 5 ml ONETIME ONE Administration Sodium Chloride 1,000 mls @ 999 mls/hr 04/23/19 01:02 04/23/19 01:11 Normal Saline IV 04/23/19 02:02 999 mls/hr STAT ONE Administration Pantoprazole Sodium 80 mg 04/23/19 01:04 04/23/19 01:11 Protonix Iv IVPUSH 04/23/19 01:05 80 mg .BOLUS ONE Administration Departure - Departure Time of Disposition: :19 Disposition: Refer to Observation Condition: Fair Clinical Impression: Atypical chest pain - Discharge Information - My Orders Last 24 Hours: My Active Orders 04/23/19 01:02 EKG Documentation Completion [RC] STAT UA RFX JULISA AND CULT IF INDIC [URIN] Stat - Assessment/Plan Last 24 Hours: My Active Orders 04/23/19 01:02 EKG Documentation Completion [RC] STAT UA RFX JULISA AND CULT IF INDIC [URIN] Stat
[2019-04-23 01:34] LABS: CHLORIDE,CL 103 mmol/L (98-107); SODIUM,NA 138 mmol/L (136-148)
[2019-04-23] MEDS ORDERED: Alum Hydrox/Mag Hydrox/Simeth 15 ML, Metoclopramide 5 MG, Lidocaine 2% 5 ML PO ONE ×3 (01:44)
--- NOTE | 2019-04-23 02:07 | CR ---
INDICATION: Chest pain for about an hour INDICATION: Chest pain. TECHNIQUE: Chest 1 view. COMPARISON: 02/12/2018. FINDINGS: Cardiovascular and mediastinum: Heart size and vasculature are normal in caliber and appearance. Mediastinum is within normal limits. Lungs and pleural space: Lungs are clear. No sign of infiltrate or mass. No sign of pleural effusion. No pneumothorax. Bones and soft tissues: No significant findings. IMPRESSION: Lungs are clear. Dictated by Rommel Valenzuela MD @ 04/23/2019 2:04:56 AM Dictated by: Rommel Valenzuela MD @ 04/23/2019 02:05:03 (Electronically Signed)
[2019-04-23] MEDS: Acetaminophen 325 MG Tab PO PRN ×2 (04:08→08:30)
[2019-04-23 13:10] VITALS: BP 125/75
--- NOTE | 2019-04-23 13:45 | PCM.HP.2 ---
<Mitesh Trejo - Last Filed: 04/23/19 14:21> H&P History of Present Illness - General Date of Service: 04/23/19 Admit Problem/Dx: Admission Diagnosis/Problem Admission Diagnosis/Problem Atypical chest pain Source of Information: Patient History Limitations: Reports: No Limitations - History of Present Illness Initial Comments - Free Text/Narative: patient is a 49-year-old male with no significant past medical history, inmate at the [facility] senior living, presenting last night with gradual onset of chest discomfort. patient described chest discomfort as pressure at the center chest with mild shortness of breath. Denies any alleviating versus exacerbating factors. Patient does mention having similar symptoms in the previous year and was diagnosed with fluid around the heart however does not recall actual diagnosis or medication being placed on. ED course: patient given aspirin and nitroglycerin, CXR: no cardiomegaly or infiltrates appreciated. EKG sinus rhythm and telemetry showed occasional PVCs. Bedside a.m.: patient still complaining of mild chest pressure but was sleeping prior to initiation of examination. States sometimes it gets worse with sitting up, but not all the time. States chest discomfort is better since last month. Chest Pain Pain Score (Numeric/FACES): 4 - Related Data Allergies/Adverse Reactions: Allergies Allergy/AdvReac Type Severity Reaction Status Date / Time No Known Allergies Allergy Verified 04/23/19 02:56 Home Medications: Home Meds . [No Known Home Meds] 03/12/17 [History] Past Medical History - Past Health History Medical/Surgical History: Denies Medical/Surgical History HEENT History: Reports: Other (See Below) Other HEENT History: blind in left eye Cardiovascular History: Reports: Other (See Below) Other Cardiovascular History: "fluid around the heart" Respiratory History: Reports: None Gastrointestinal History: Reports: None Genitourinary History: Reports: None Musculoskeletal History: Reports: None Neurological History: Reports: None Psychiatric History: Reports: None Endocrine/Metabolic History: Reports: None Hematologic History: Reports: None Immunologic History: Reports: None Oncologic (Cancer) History: Reports: None Dermatologic History: Reports: None - Infectious Disease History Infectious Disease History: Reports: Chicken Pox, Shingles - Past Surgical History HEENT Surgical History: Reports: Other (See Below) Other HEENT Surgeries/Procedures: lens removal left eye Cardiovascular Surgical History: Reports: None Social & Family History - Family History Family Medical History: Noncontributory - Tobacco Use Smoking Status *Q: Current Every Day Smoker Years of Tobacco use: 25 Packs/Tins Daily: 0.5 - Caffeine Use Caffeine Use: Reports: Coffee, Soda - Recreational Drug Use Recreational Drug Use: No H&P Review of Systems - Review of Systems: Review Of Systems: See Below General: Reports: No Symptoms HEENT: Reports: No Symptoms Pulmonary: Reports: No Symptoms Cardiovascular: Reports: Other (chest pressure ). Denies: Palpitations, Orthopnea, Edema, Lightheadedness, Syncope Gastrointestinal: Reports: No Symptoms Musculoskeletal: Reports: No Symptoms Skin: Reports: No Symptoms Psychiatric: Reports: No Symptoms Neurological: Reports: No Symptoms Exam - Exam Exam: See Below - Vital Signs Vital Signs: Last Vital Signs Temp 97.6 F 04/23/19 11:08 Pulse 80 04/23/19 11:08 Resp 20 04/23/19 11:08 BP 125/75 04/23/19 11:08 Pulse Ox 96 04/23/19 11:08 Weight: 82.962 kg - Exam Quality Assessment: No: Supplemental Oxygen General: Alert, Oriented HEENT: Conjunctiva Clear, EOMI Neck: Supple, Trachea Midline Lungs: Clear to Auscultation, Normal Respiratory Effort Cardiovascular: Regular Rate, Regular Rhythm GI/Abdominal Exam: Normal Bowel Sounds, Soft, Non-Tender, No Organomegaly Back Exam: Full Range of Motion Extremities: Normal Inspection, Normal Range of Motion, No Pedal Edema Skin: Warm, Dry, Intact Neurological: Cranial Nerves Intact Neuro Extensive - Mental Status: Alert, Oriented x3, Normal Mood/Affect, Normal Cognition, Memory Intact Neuro Extensive - Motor, Sensory, Reflexes: CN II-XII Intact, Normal Gait - Patient Data Lab Results Last 24 hrs: Laboratory Results - last 24 hr 04/23/19 04/23/19 04/23/19 Range/Units 01:05 01:05 01:05 WBC 11.99 H (4.0-11.0) K/uL RBC 5.77 (4.50-5.90) M/uL Hgb 16.4 (13.0-17.0) g/dL Hct 48.6 (38.0-50.0) % MCV 84.2 (80.0-98.0) fL MCH 28.4 (27.0-32.0) pg MCHC 33.7 (31.0-37.0) g/dL RDW Std Deviation 41.4 (28.0-62.0) fl RDW Coeff of Liat 14 (11.0-15.0) % Plt Count 347 (150-400) K/uL MPV 9.50 (7.40-12.00) fL Neut % (Auto) 56.6 (48.0-80.0) % Lymph % (Auto) 35.2 (16.0-40.0) % Edwards % (Auto) 5.7 (0.0-15.0) % Eos % (Auto) 2.3 (0.0-7.0) % Baso % (Auto) 0.2 (0.0-1.5) % Neut # (Auto) 6.8 H (1.4-5.7) K/uL Lymph # (Auto) 4.2 H (0.6-2.4) K/uL Edwards # (Auto) 0.7 (0.0-0.8) K/uL Eos # (Auto) 0.3 (0.0-0.7) K/uL Baso # (Auto) 0.0 (0.0-0.1) K/uL Sodium 138 (136-148) mmol/L Potassium 4.1 (3.5-5.1) mmol/L Chloride 103 (98-107) mmol/L Carbon Dioxide 26.4 (21.0-32.0) mmol/L BUN 17 (7.0-18.0) mg/dL Creatinine 1.2 (0.8-1.3) mg/dL Est Cr Clr Drug Dosing 74.46 mL/min Estimated GFR (MDRD) > 60.0 ml/min Glucose 144 H (74-106) mg/dL Calcium 9.3 (8.5-10.1) mg/dL Total Bilirubin 0.4 (0.2-1.0) mg/dL AST 18 (15-37) IU/L ALT 41 (14-63) IU/L Alkaline Phosphatase 79 (46-116) U/L Troponin I < 0.050 (0.000-0.056) ng/mL C-Reactive Protein 0.20 (0.00-0.90) mg/dL Total Protein 7.0 (6.4-8.2) g/dL Albumin 3.4 (3.4-5.0) g/dL Globulin 3.6 (2.6-4.0) g/dL Albumin/Globulin Ratio 0.9 (0.9-1.6) Lipase 117 (73-393) U/L 04/23/19 Range/Units 07:04 WBC (4.0-11.0) K/uL RBC (4.50-5.90) M/uL Hgb (13.0-17.0) g/dL Hct (38.0-50.0) % MCV (80.0-98.0) fL MCH (27.0-32.0) pg MCHC (31.0-37.0) g/dL RDW Std Deviation (28.0-62.0) fl RDW Coeff of Liat (11.0-15.0) % Plt Count (150-400) K/uL MPV (7.40-12.00) fL Neut % (Auto) (48.0-80.0) % Lymph % (Auto) (16.0-40.0) % Edwards % (Auto) (0.0-15.0) % Eos % (Auto) (0.0-7.0) % Baso % (Auto) (0.0-1.5) % Neut # (Auto) (1.4-5.7) K/uL Lymph # (Auto) (0.6-2.4) K/uL Edwards # (Auto) (0.0-0.8) K/uL Eos # (Auto) (0.0-0.7) K/uL Baso # (Auto) (0.0-0.1) K/uL Sodium (136-148) mmol/L Potassium (3.5-5.1) mmol/L Chloride (98-107) mmol/L Carbon Dioxide (21.0-32.0) mmol/L BUN (7.0-18.0) mg/dL Creatinine (0.8-1.3) mg/dL Est Cr Clr Drug Dosing mL/min Estimated GFR (MDRD) ml/min Glucose (74-106) mg/dL Calcium (8.5-10.1) mg/dL Total Bilirubin (0.2-1.0) mg/dL AST (15-37) IU/L ALT (14-63) IU/L Alkaline Phosphatase (46-116) U/L Troponin I < 0.050 (0.000-0.056) ng/mL C-Reactive Protein (0.00-0.90) mg/dL Total Protein (6.4-8.2) g/dL Albumin (3.4-5.0) g/dL Globulin (2.6-4.0) g/dL Albumin/Globulin Ratio (0.9-1.6) Lipase (73-393) U/L Result Diagrams: 04/23/19 01:05 04/23/19 01:05 Problem List Initiated/Reviewed/Updated: Yes Orders Last 24hrs: Active Orders 24 hr Category Date Time Status Admission Status [Patient Status] [ADT] Stat ADT 04/23/19 02:23 Active Cardiac Monitoring [RC] . DIRECTED Care 04/23/19 03:42 Active Intake and Output [RC] ASDIRECTED Care 04/23/19 11:08 Active Telemetry Monitoring [Cardiac Monitoring] [RC] Q8H Care 04/23/19 03:44 Active Vital Signs [RC] PER UNIT ROUTINE Care 04/23/19 11:08 Active Heart Healthy Diet [DIET] Diet 04/23/19 Breakfast Active TROPONIN I [CHEM] Q6H Lab 04/23/19 13:05 Received UA RFX JULISA AND CULT IF INDIC [URIN] Stat Lab 04/23/19 01:02 Ordered Acetaminophen [Tylenol] Med 04/23/19 03:42 Active 650 mg PO Q4H PRN Code Status [Resuscitation Status] Routine Resus Stat 04/23/19 09:06 Ordered Medication Orders Acetaminophen (Tylenol) 650 mg PO Q4H PRN PRN Reason: Pain Last Admin: 04/23/19 08:30 Dose: 650 mg Admin: 04/23/19 04:08 Dose: 650 mg Assessment/Plan Comment:: assessment: 1. Atypical chest pain 2. Leukocytosis plan: 1. Admit patient to observation. Vitals per routine. Intake and output per routine. DVT prophylaxis Lovenox. Diet: cardiac. 2. Ordered EKG troponin every 6hs3. Initial troponin was negative continue to trend. Echo and stress test will be ordered outpatient if troponin continues to be negative. 3. Leukocytosis: patient is clinically stable, afebrile, most likely secondary to cardiac demand. Discharge: patient ultimately discharged after having 3 negative troponins. patient advised to follow-up with PCP. Outpatient echo and stress test/treadmill prescription provided to patient. Patient was stable on discharge. Patient returned to police custody. <Sumit Tam - Last Filed: 04/23/19 19:25> H&P History of Present Illness - General Admit Problem/Dx: Admission Diagnosis/Problem Admission Diagnosis/Problem Atypical chest pain Exam - Vital Signs Vital Signs: Last Vital Signs Temp 36.4 C 04/23/19 11:08 Pulse 80 04/23/19 11:08 Resp 20 04/23/19 11:08 BP 125/75 04/23/19 11:08 Pulse Ox 96 04/23/19 11:08 - Patient Data Lab Results Last 24 hrs: Laboratory Results - last 24 hr 04/23/19 04/23/19 04/23/19 Range/Units 01:05 01:05 01:05 WBC 11.99 H (4.0-11.0) K/uL RBC 5.77 (4.50-5.90) M/uL Hgb 16.4 (13.0-17.0) g/dL Hct 48.6 (38.0-50.0) % MCV 84.2 (80.0-98.0) fL MCH 28.4 (27.0-32.0) pg MCHC 33.7 (31.0-37.0) g/dL RDW Std Deviation 41.4 (28.0-62.0) fl RDW Coeff of Liat 14 (11.0-15.0) % Plt Count 347 (150-400) K/uL MPV 9.50 (7.40-12.00) fL Neut % (Auto) 56.6 (48.0-80.0) % Lymph % (Auto) 35.2 (16.0-40.0) % Edwards % (Auto) 5.7 (0.0-15.0) % Eos % (Auto) 2.3 (0.0-7.0) % Baso % (Auto) 0.2 (0.0-1.5) % Neut # (Auto) 6.8 H (1.4-5.7) K/uL Lymph # (Auto) 4.2 H (0.6-2.4) K/uL Edwards # (Auto) 0.7 (0.0-0.8) K/uL Eos # (Auto) 0.3 (0.0-0.7) K/uL Baso # (Auto) 0.0 (0.0-0.1) K/uL Sodium 138 (136-148) mmol/L Potassium 4.1 (3.5-5.1) mmol/L Chloride 103 (98-107) mmol/L Carbon Dioxide 26.4 (21.0-32.0) mmol/L BUN 17 (7.0-18.0) mg/dL Creatinine 1.2 (0.8-1.3) mg/dL Est Cr Clr Drug Dosing 74.46 mL/min Estimated GFR (MDRD) > 60.0 ml/min Glucose 144 H (74-106) mg/dL Calcium 9.3 (8.5-10.1) mg/dL Total Bilirubin 0.4 (0.2-1.0) mg/dL AST 18 (15-37) IU/L ALT 41 (14-63) IU/L Alkaline Phosphatase 79 (46-116) U/L Troponin I < 0.050 (0.000-0.056) ng/mL C-Reactive Protein 0.20 (0.00-0.90) mg/dL Total Protein 7.0 (6.4-8.2) g/dL Albumin 3.4 (3.4-5.0) g/dL Globulin 3.6 (2.6-4.0) g/dL Albumin/Globulin Ratio 0.9 (0.9-1.6) Lipase 117 (73-393) U/L 04/23/19 04/23/19 Range/Units 07:04 13:05 WBC (4.0-11.0) K/uL RBC (4.50-5.90) M/uL Hgb (13.0-17.0) g/dL Hct (38.0-50.0) % MCV (80.0-98.0) fL MCH (27.0-32.0) pg MCHC (31.0-37.0) g/dL RDW Std Deviation (28.0-62.0) fl RDW Coeff of Liat (11.0-15.0) % Plt Count (150-400) K/uL MPV (7.40-12.00) fL Neut % (Auto) (48.0-80.0) % Lymph % (Auto) (16.0-40.0) % Edwards % (Auto) (0.0-15.0) % Eos % (Auto) (0.0-7.0) % Baso % (Auto) (0.0-1.5) % Neut # (Auto) (1.4-5.7) K/uL Lymph # (Auto) (0.6-2.4) K/uL Edwards # (Auto) (0.0-0.8) K/uL Eos # (Auto) (0.0-0.7) K/uL Baso # (Auto) (0.0-0.1) K/uL Sodium (136-148) mmol/L Potassium (3.5-5.1) mmol/L Chloride (98-107) mmol/L Carbon Dioxide (21.0-32.0) mmol/L BUN (7.0-18.0) mg/dL Creatinine (0.8-1.3) mg/dL Est Cr Clr Drug Dosing mL/min Estimated GFR (MDRD) ml/min Glucose (74-106) mg/dL Calcium (8.5-10.1) mg/dL Total Bilirubin (0.2-1.0) mg/dL AST (15-37) IU/L ALT (14-63) IU/L Alkaline Phosphatase (46-116) U/L Troponin I < 0.050 < 0.050 (0.000-0.056) ng/mL C-Reactive Protein (0.00-0.90) mg/dL Total Protein (6.4-8.2) g/dL Albumin (3.4-5.0) g/dL Globulin (2.6-4.0) g/dL Albumin/Globulin Ratio (0.9-1.6) Lipase (73-393) U/L Result Diagrams: 04/23/19 01:05 04/23/19 01:05 Orders Last 24hrs: Active Orders 24 hr Category Date Time Status Admission Status [Patient Status] [ADT] Stat ADT 04/23/19 02:23 Active Cardiac Monitoring [RC] . DIRECTED Care 04/23/19 03:42 Active Intake and Output [RC] ASDIRECTED Care 04/23/19 11:08 Active Ready for Discharge [RC] PER UNIT ROUTINE Care 04/23/19 13:55 Active Machine Operator Discontinue [Cardiac Monitoring Care 04/23/19 14:10 Active Discontinue] [RC] Click to Edit Telemetry Monitoring [Cardiac Monitoring] [RC] Q8H Care 04/23/19 03:44 Active Vital Signs [RC] PER UNIT ROUTINE Care 04/23/19 11:08 Active UA RFX JULISA AND CULT IF INDIC [URIN] Stat Lab 04/23/19 01:02 Ordered Code Status [Resuscitation Status] Routine Resus Stat 04/23/19 09:06 Ordered - Free Text/Narrative Note: I have evaluated the patient. I have discussed findings and treatment plan with resident. I agree with the assessment and plan outlined in the following note.
== END 2019-04-23 15:50 ==
LOC: MW.ED 01:00 → MW.MS 02:23
PROVIDERS: ADMIT Internal Medicine; ATTEND Internal Medicine
DX: R07.89 Other chest pain (principal); D72.829 Elevated white blood cell count, unspecified; I49.3 Ventricular premature depolarization; F17.200 Nicotine dependence, unspecified, uncomplicated
CPT/HCPCS: 36415; 71045; 80053; 83690; 84484; 85025; 86140; 93005; 96361; 96374; 99285; A9270; C9113; J7040; G0378

== ENCOUNTER 2020-09-27 04:48 | Emergency (ER) | payer MEDICAID, OTHER ==
[2020-09-27] MEDS ORDERED: Aspirin 81 MG Tab.Chew PO ONE (04:59)
[2020-09-27] MEDS ORDERED: Morphine 4 MG/ML Syringe IVPUSH ONE (04:59)
--- NOTE | 2020-09-27 05:35 | CR ---
INDICATION: Chest pain TECHNIQUE: Chest radiograph 1 view COMPARISON: 04/23/2019 FINDINGS: Mediastinum: The mediastinum is normal in appearance. The heart silhouette is normal in size and morphology. Lung: Mild bibasilar subsegmental atelectasis noted with small lung volumes. No sign of pleural effusion seen. No pneumothorax is identified. Bone and Soft tissue: Unremarkable for age. IMPRESSION: 1. Mild bibasilar subsegmental atelectasis is noted. Dictated by: Joni Cavanaugh MD @ 09/27/2020 05:34:37 (Electronically Signed)
[2020-09-27 05:41] LABS: BLOOD UREA NITROGEN,BUN 21 mg/dL (7.0-18.0); CARBON DIOXIDE,CO2 27.4 mmol/L (21.0-32.0); CHLORIDE,CL 103 mmol/L (98-107); GLUCOSE RANDOM 81 mg/dL (74-106); POTASSIUM,K 3.9 mmol/L (3.5-5.1); SODIUM,NA 143 mmol/L (136-148)
[2020-09-27] MEDS ORDERED: Nitroglycerin 0.4 MG Tab.SL SL ONE (05:43)
--- NOTE | 2020-09-27 05:55 | EDM.PDOC ---
ED HPI GENERAL MEDICAL PROBLEM - General Chief Complaint: Chest Pain Stated Complaint: CHEST PAIN Time Seen by Provider: 09/27/20 04:59 - History of Present Illness INITIAL COMMENTS - FREE TEXT/NARRATIVE: CHIEF COMPLAINT(S): Chest pain HISTORY OF PRESENT ILLNESS: This is a 50-year-old man with a past medical history of IV methamphetamine use who comes to the emergency department with a chief complaint of chest pain. The patient states that he started to experience left-sided chest pain without any radiation which he rates as 8 out of 10. He states that he does have some diaphoresis and some nausea but denies any vomiti ng. He denies any recent meth use. Last meth use was approximately 2 to 3 days ago. He denies any history of endocarditis. He denies any fevers or rash. He states that he does not feel short of breath. He denies any aggravating symptoms and nothing seems to be relieving the chest pain. He describes the chest pain as sharp. He describes it as constant. He denies any recent travel, recent surgery, prior history of DVT or PE. He denies any personal history of CAD but does have a family history of CAD. REVIEW OF SYSTEMS: Constitutional: For diaphoresis denies fever, chills. Eyes: Denies eye pain Ears, Nose, Mouth, & Throat: Denies earache Cardiovascular: Positive for chest pain Respiratory: Denies shortness of breath Gastrointestinal: For nausea. Denies vomiting, diarrhea, hematochezia Genitourinary: Denies hematuria Skin:Denies a rash Neurological: Denies blurred vision, numbness, tingling, weakness Psychiatric: Denies depression PAST MEDICAL HISTORY: As per history of present illness and as reviewed below otherwise noncontributory. SURGICAL HISTORY: As per history of present illness and as reviewed below otherwise noncontributory. SOCIAL HISTORY: As per history of present illness and as reviewed below otherwise noncontributory. FAMILY HISTORY: As per history of present illness and as reviewed below otherwise noncontributory. EXAMINATION OF ORGAN SYSTEMS/BODY AREAS: Constitutional: Blood pressure, HR, RR, Temp General: Middle-aged gentleman who is diaphoretic but in no acute distress. Psychiatric: Appropriate mood and affect. Eyes: No scleral icterus or conjunctival erythema ENMT: Moist mucous membranes. No pharyngeal erythema Cardiovascular: Regular, rate, and rhythm. No gallops, murmurs, or rubs. Bilateral upper extremity pulses symmetric and intact. No peripheral edema. No JVD. Respiratory: Lungs clear to auscultation bilaterally. No wheezes, rales, or rhonchi. Gastrointestinal: Soft, non-tender, non-distended. Normoactive bowel sounds Genitourinary: No suprapubic tenderness Musculoskeletal: Normal range of motion. Skin: No lesions or abrasions. No Janeway lesions or Osler's nodes. Neurological: Alert, GCS 15 MEDICAL DECISION MAKING AND COURSE IN THE ED WITH INTERPRETATION/REVIEW OF DIAGNOSTIC STUDIES: This is a 50-year-old man with a past medical history of methamphetamine use via intravenous route who comes to the emergency department with acute chest pain associated with diaphoresis nausea who is diaphoretic. His vitals are stable. We did obtain an EKG. There is no obvious ST elevation. We will provide the patient with 4 mg of IV morphine for pain, 324 mg of p.o. aspirin and obtain a [id number] glucose. Will obtain labs and a chest x-ray. We will place the patient on cardiac monitoring and pulse oximetry. IV access was difficult to obtain secondary to venous scarring from IV drug use. Therefore I did place a peripheral ultrasound IV via ultrasound guidance in the left forearm without any difficulty. [id number] glucose was found to be 69. We will encourage p.o. sugar intake. Twelve-lead EKG interpreted by myself. Normal sinus rhythm at a rate of 96beats per minute. Normal axis. IA interval is 130ms. QRS duration is 87ms. ST segments are normal without elevations or depressions. No Q waves present. Hypertrophy not noted. No changes demonstrated from prior EKG dated 04/23/2019. Interpretation: Sinus rhythm I did review the patient's chart and he has been admitted for chest pain in the past. He had a exercise stress test which did reveal normal hemodynamics, normal chronotropic and adequate exercise capacity. Negative for ischemia on EKG. This was done on May 10, 2019. In addition there is an echocardiogram that was completed on June 13, 2019 which revealed left ventricular ejection fraction of 55 to 60%. Normal LV function. No evidence of pericardial effusion or wall motion abnormalities at that time. The patient reported a prior history of pericardial effusion. Therefore I did perform a bedside ultrasound. Bedside ultrasound revealed normal ejection fraction with no evidence of pericardial effusion. No obvious wall motion abnormalities. No evidence of right heart strain. Twelve-lead EKG interpreted by myself. Normal sinus rhythm at a rate of 95beats per minute. Normal axis. IA interval is 145ms. QRS duration is 87ms. ST segments are normal without elevations or depressions. No Q waves present. Hypertrophy not noted. No changes demonstrated from prior EKG dated today. Interpretation: Normal sinus rhythm The radiological images were viewed by myself along with reading the report from the radiologist. Chest x-ray does not reveal any acute cardiopulmonary process with some mild bibasilar subsegmental atelectasis. On reevaluation the patient stated his pain had continued. We have provided the patient with 0.4 mg of nitroglycerin. Will reevaluate. After 0.4 mg of nitroglycerin the patient's pain did not subside. We did obtain blood pressures in both arms which were essentially equivalent. However at this time differential does include dissection we will obtain a D-dimer for further evaluation. After the nitroglycerin, the patient developed hiccups. We provide the patient with Thorazine IM. Laboratory: CBC reveals thrombocytosis at 506 otherwise unremarkable. BMP reveals acute kidney injury with a BUN of 21 and a creatinine of 1.4. Glucose was 81. Magnesium 2.4. Troponin x1 is negative. Covid is negative. Twelve-lead EKG interpreted by myself. Normal sinus rhythm at a rate of 97beats per minute. Normal axis. IA interval is 146ms. QRS duration is 88ms. ST segments are normal without elevations or depressions. No Q waves present. Hypertrophy not noted. No changes demonstrated from prior EKG dated today. Interpretation: Normal sinus rhythm The patient notified RN that that he wanted to leave. I did have a discussion with at this time that I am concerned about a possible myocardial infarction, dissection or PE. He was apprised of the risks of leaving. At the time of my evaluation he was alert and oriented x4 and was able to repeat to me back what the risks were of leaving. At this time the D-dimer was not back yet. The patient was apprised of the potential risks of leaving the hospital AGAINST MEDICAL ADVICE. They include serious complications, permanent disability, and . At the time of my interview with the patient, the patient was alert, oriented, and capable. I urged the patient to return to the hospital as soon as possible to complete their evaluation and treatment. DISPOSITION: The patient left AGAINST MEDICAL ADVICE CONDITION: Serious PROCEDURES: Peripheral ultrasound IV FINAL IMPRESSION(S)/DIAGNOSES: 1. Acute chest pain Ranjit Ivan M.D. L chest \\ Pain Score (Numeric/FACES): 6 - Related Data Allergies Allergy/AdvReac Type Severity Reaction Status Date / Time No Known Allergies Allergy Verified 04/23/19 02:56 Home Meds: Home Meds . [No Known Home Meds] 03/12/17 [History] Past Medical History - Past Health History Medical/Surgical History: Denies Medical/Surgical History HEENT History: Reports: Other (See Below) Other HEENT History: blind in left eye Cardiovascular History: Reports: Other (See Below) Other Cardiovascular History: "fluid around the heart" Respiratory History: Reports: None Gastrointestinal History: Reports: None Genitourinary History: Reports: None Musculoskeletal History: Reports: None Neurological History: Reports: None Psychiatric History: Reports: None Endocrine/Metabolic History: Reports: None Hematologic History: Reports: None Immunologic History: Reports: None Oncologic (Cancer) History: Reports: None Dermatologic History: Reports: None - Infectious Disease History Infectious Disease History: Reports: Chicken Pox, Shingles - Past Surgical History HEENT Surgical History: Reports: Other (See Below) Other HEENT Surgeries/Procedures: lens removal left eye Cardiovascular Surgical History: Reports: None Social & Family History - Family History Family Medical History: No Pertinent Family History - Caffeine Use Caffeine Use: Reports: Coffee, Soda ED ROS GENERAL - Review of Systems Review Of Systems: See Below ED EXAM, GENERAL - Physical Exam Exam: See Below Course - Vital Signs Last Recorded V/S: Last Vital Signs Temp 36.8 C 09/27/20 06:38 Pulse 104 H 09/27/20 06:38 Resp 20 09/27/20 06:38 BP 169/90 H 09/27/20 06:38 Pulse Ox 97 09/27/20 06:38 - Orders/Labs/Meds Orders: Active Orders 24 hr Category Date Time Status TROPONIN I [CHEM] Stat Lab 09/27/20 09:00 Ordered Labs: Laboratory Tests 09/27/20 09/27/20 09/27/20 Range/Units 04:59 04:59 05:10 WBC 10.56 (4.0-11.0) K/uL RBC 5.25 (4.50-5.90) M/uL Hgb 14.6 (13.0-17.0) g/dL Hct 46.1 (38.0-50.0) % MCV 87.8 (80.0-98.0) fL MCH 27.8 (27.0-32.0) pg MCHC 31.7 (31.0-37.0) g/dL RDW Std Deviation 43.8 (28.0-62.0) fl RDW Coeff of Liat 14 (11.0-15.0) % Plt Count 506 H (150-400) K/uL MPV 9.20 (7.40-12.00) fL Neut % (Auto) 56.8 (48.0-80.0) % Lymph % (Auto) 31.6 (16.0-40.0) % Carter % (Auto) 6.4 (0.0-15.0) % Eos % (Auto) 4.7 (0.0-7.0) % Baso % (Auto) 0.5 (0.0-1.5) % Neut # (Auto) 6.0 H (1.4-5.7) K/uL Lymph # (Auto) 3.3 H (0.6-2.4) K/uL Carter # (Auto) 0.7 (0.0-0.8) K/uL Eos # (Auto) 0.5 (0.0-0.7) K/uL Baso # (Auto) 0.1 (0.0-0.1) K/uL Nucleated RBC % 0.0 /100WBC Nucleated RBCs # 0 K/uL D-Dimer, Quantitative (0.0-0.50) mg/L FEU Sodium 143 (136-148) mmol/L Potassium 3.9 (3.5-5.1) mmol/L Chloride 103 (98-107) mmol/L Carbon Dioxide 27.4 (21.0-32.0) mmol/L BUN 21 H (7.0-18.0) mg/dL Creatinine 1.4 H (0.8-1.3) mg/dL Est Cr Clr Drug Dosing TNP Estimated GFR (MDRD) 53.6 ml/min Glucose 81 (74-106) mg/dL POC Glucose (60-110) mg/dL Calcium 9.6 (8.5-10.1) mg/dL Magnesium 2.4 (1.8-2.4) mg/dL Creatine Kinase 64 (26-308) U/L Troponin I < 0.050 (0.000-0.056) ng/mL SARS-CoV-2 RNA (CHRISTINA) (NEGATIVE) 09/27/20 09/27/20 09/27/20 Range/Units 05:10 05:11 05:20 WBC (4.0-11.0) K/uL RBC (4.50-5.90) M/uL Hgb (13.0-17.0) g/dL Hct (38.0-50.0) % MCV (80.0-98.0) fL MCH (27.0-32.0) pg MCHC (31.0-37.0) g/dL RDW Std Deviation (28.0-62.0) fl RDW Coeff of Liat (11.0-15.0) % Plt Count (150-400) K/uL MPV (7.40-12.00) fL Neut % (Auto) (48.0-80.0) % Lymph % (Auto) (16.0-40.0) % Carter % (Auto) (0.0-15.0) % Eos % (Auto) (0.0-7.0) % Baso % (Auto) (0.0-1.5) % Neut # (Auto) (1.4-5.7) K/uL Lymph # (Auto) (0.6-2.4) K/uL Carter # (Auto) (0.0-0.8) K/uL Eos # (Auto) (0.0-0.7) K/uL Baso # (Auto) (0.0-0.1) K/uL Nucleated RBC % /100WBC Nucleated RBCs # K/uL D-Dimer, Quantitative 0.70 H (0.0-0.50) mg/L FEU Sodium (136-148) mmol/L Potassium (3.5-5.1) mmol/L Chloride (98-107) mmol/L Carbon Dioxide (21.0-32.0) mmol/L BUN (7.0-18.0) mg/dL Creatinine (0.8-1.3) mg/dL Est Cr Clr Drug Dosing Estimated GFR (MDRD) ml/min Glucose (74-106) mg/dL POC Glucose 69 (60-110) mg/dL Calcium (8.5-10.1) mg/dL Magnesium (1.8-2.4) mg/dL Creatine Kinase (26-308) U/L Troponin I (0.000-0.056) ng/mL SARS-CoV-2 RNA (CHRISTINA) NEGATIVE (NEGATIVE) Meds: Medications Discontinued Medications Generic Name Dose Route Start Last Admin Trade Name Freq PRN Reason Stop Dose Admin Aspirin 324 mg 09/27/20 04:59 09/27/20 05:06 Aspirin PO 09/27/20 05:00 324 mg ONETIME ONE Administration Chlorpromazine HCl 25 mg 09/27/20 06:09 09/27/20 06:16 Thorazine IM 09/27/20 06:10 25 mg ONETIME ONE Administration Morphine Sulfate 4 mg 09/27/20 04:59 09/27/20 05:08 Morphine IVPUSH 09/27/20 05:00 4 mg ONETIME ONE Administration Nitroglycerin 0.4 mg 09/27/20 05:43 09/27/20 05:49 Nitrostat SL 09/27/20 05:44 0.4 mg ONETIME ONE Administration Departure - Departure Time of Disposition: 06:46 Disposition: Against Medical Advice 07 Condition: Serious Clinical Impression: Chest pain Qualifiers: Chest pain type: unspecified Qualified Code(s): R07.9 - Chest pain, unspecified - Discharge Information *PRESCRIPTION DRUG MONITORING PROGRAM REVIEWED*: No *COPY OF PRESCRIPTION DRUG MONITORING REPORT IN PATIENT GA: No Instructions: Nonspecific Chest Pain, Adult, [id number], Angina, [id number] Referrals: Mehrdad Marie MD [Physician] - Forms: ED Department Discharge, Refusal of Care AMA Additional Instructions: The patient was apprised of the potential risks of leaving the hospital AGAINST MEDICAL ADVICE. They include serious complications, permanent disability, and . At the time of my interview with the patient, the patient was alert, oriented, and capable. I urged the patient to return to the hospital as soon as possible to complete their evaluation and treatment. . At this time your evaluated in the emergency department for chest pain which could be to a heart attack, clot in your lung or dissection in your aorta. We recommended further treatment. I do recommend you return to the emergency department for evaluation. 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 [facility] - [facility] [address], [place] [address] [facility] [address] [place] [id number] The patient is informed of any results of their evaluation and diagnostic workup and all questions are answered. They are given discharge instructions and return precautions. The patient is stable for discharge. The patient states they understand and agree with the plan and that they will return if their symptoms get worse or if they have any new concerns. The following information is given to patients seen in the emergency department who are being discharged to home. This information is to outline your options for follow-up care. We provide all patients seen in our emergency department with a follow-up referral. The need for follow-up, as well as the timing and circumstances, are variable depending upon the specifics of your emergency department visit. If you don't have a primary care physician on staff, we will provide you with a referral. We always advise you to contact your personal physician following an emergency department visit to inform them of the circumstance of the visit and for follow-up with them and/or the need for any referrals to a consulting specialist. The emergency department will also refer you to a specialist when appropriate. This referral assures that you have the opportunity for follow-up care with a specialist. All of these measure are taken in an effort to provide you with optimal care, which includes your follow-up. Under all circumstances we always encourage you to contact your private physician who remains a resource for coordinating your care. When calling for follow-up care, please make the office aware that this follow-up is from your recent emergency room visit. If for any reason you are refused follow-up, please contact the [facility] Emergency Department at and asked to speak to the emergency department charge nurse. Sepsis Event Note (ED) - Focused Exam Vital Signs: Vital Signs Temp Pulse Resp BP BP BP Pulse Ox 09/27/20 06:38 36.8 C 104 H 20 169/90 H 97 09/27/20 06:31 104 H 18 134/83 98 09/27/20 06:30 101 H 18 147/82 H 98 09/27/20 05:49 172/85 H - My Orders Last 24 Hours: My Active Orders 09/27/20 09:00 TROPONIN I [CHEM] Stat - Assessment/Plan Last 24 Hours: My Active Orders 09/27/20 09:00 TROPONIN I [CHEM] Stat
[2020-09-27] MEDS ORDERED: chlorproMAZINE 50 MG/2 ML Amp IM ONE (06:09)
[2020-09-27 06:32] VITALS: PULSE 104
[2020-09-27 06:43] VITALS: BP 169/90
== END 2020-09-27 06:43 | disposition left against medical advice (07) ==
LOC: MW.ED 04:48
DX: R07.9 Chest pain, unspecified (principal); Z20.822 Contact with and (suspected) exposure to COVID-19
CPT/HCPCS: 36415; 71045; 80048; 82550; 82962; 83735; 84484; 85025; 85379; 87635; 93005; 96372; 96374; 99285; A9270; J2270; J3230; 93010; 99283; U0002

== ENCOUNTER 2020-10-07 09:53 | Emergency (ER) | payer MEDICAID ==
--- NOTE | 2020-10-07 10:19 | EDM.PDOC ---
ED HPI GENERAL MEDICAL PROBLEM - General Chief Complaint: General Stated Complaint: MEDICAL CLEARANCE Time Seen by Provider: 10/07/20 10:03 - History of Present Illness INITIAL COMMENTS - FREE TEXT/NARRATIVE: CHIEF COMPLAINT(S): "I am here for medical clearance." HISTORY OF PRESENT ILLNESS: This is a 50-year-old man with a past medical history of IV methamphetamine use who comes to the emergency department with a chief complaint of "I am here for medical clearance." The patient states that he was not on his way to the hospital is not have any symptoms and was brought in because he has a warrant for his arrest and needs medical clearance. He currently denies any fever, chest pain, shortness of breath, abdominal pain, headache, syncope or any other symptoms. States that he overall feels well. REVIEW OF SYSTEMS: Constitutional: Denies fever, chills. Eyes: Denies eye pain Ears, Nose, Mouth, & Throat: Denies earache Cardiovascular: Denies chest pain Respiratory: Denies shortness of breath Gastrointestinal: Denies Nausea, vomiting, diarrhea, hematochezia. Genitourinary: Denies hematuria Skin:Denies a rash MSK: Denies joint pain Neurological: Denies blurred vision, numbness, tingling, weakness Psychiatric: Denies depression PAST MEDICAL HISTORY: As per history of present illness and as reviewed below otherwise noncontributory. SURGICAL HISTORY: As per history of present illness and as reviewed below o therwise noncontributory. SOCIAL HISTORY: As per history of present illness and as reviewed below otherwise noncontributory. FAMILY HISTORY: As per history of present illness and as reviewed below o therwise noncontributory. EXAMINATION OF ORGAN SYSTEMS/BODY AREAS: Constitutional: Blood pressure was 128/83, heart rate 94, respiratory rate 18 with an oxygen saturation of 96% on room air. Temperature 36.5 General: Overall well-appearing man who is in no acute distress Psychiatric: Appropriate mood and affect. Eyes: No scleral icterus or conjunctival erythema ENMT: Moist mucous membranes. No pharyngeal erythema Cardiovascular: Regular, rate, and rhythm. No gallops, murmurs, or rubs. Bilateral upper extremity pulses symmetric and intact. No peripheral edema. No JVD. Respiratory: Lungs clear to auscultation bilaterally. No wheezes, rales, or rhonchi. Gastrointestinal: Soft, non-tender, non-distended. Normoactive bowel sounds Genitourinary: No suprapubic tenderness Musculoskeletal: Normal range of motion. Skin: No lesions or abrasions. Neurological: Alert, GCS 15 strength and sensation grossly intact in upper and lower extremities bilaterally MEDICAL DECISION MAKING AND COURSE IN THE ED WITH INTERPRETATION/REVIEW OF DIAGNOSTIC STUDIES: This is a 50-year-old man with a past medical history of IV drug abuse who comes to the emergency department with no complaints who is here for medical clearance. At this time the patient is medically cleared as the patient does not have any symptoms and has normal vital signs. The triage pulse oximetry was 93 however on my evaluation the patient had a saturation of 96% and clear lungs on examination. He was instructed to follow-up with his primary care physician or return to the emergency department if he had any symptoms that were concerning to him. DISPOSITION: Patient was discharged in police custody CONDITION: Good PROCEDURES: None FINAL IMPRESSION(S)/DIAGNOSES: 1. Acute encounter for medical screening examination Ranjit Ivan M.D. - Related Data Allergies Allergy/AdvReac Type Severity Reaction Status Date / Time No Known Allergies Allergy Verified 10/07/20 10:06 Home Meds: Home Meds . [No Known Home Meds] 03/12/17 [History] Past Medical History - Past Health History Medical/Surgical History: Denies Medical/Surgical History HEENT History: Reports: Other (See Below) Other HEENT History: blind in left eye Cardiovascular History: Reports: Other (See Below) Other Cardiovascular History: "fluid around the heart" Respiratory History: Reports: None Gastrointestinal History: Reports: None Genitourinary History: Reports: None Musculoskeletal History: Reports: None Neurological History: Reports: CVA Psychiatric History: Reports: None Endocrine/Metabolic History: Reports: None Hematologic History: Reports: None Immunologic History: Reports: None Oncologic (Cancer) History: Reports: None Dermatologic History: Reports: None - Infectious Disease History Infectious Disease History: Reports: Chicken Pox, Shingles - Past Surgical History HEENT Surgical History: Reports: Other (See Below) Other HEENT Surgeries/Procedures: lens removal left eye Cardiovascular Surgical History: Reports: None Social & Family History - Family History Family Medical History: No Pertinent Family History - Tobacco Use Tobacco Use Status *Q: Current Every Day Tobacco User Years of Tobacco use: 35 Packs/Tins Daily: 1 - Caffeine Use Caffeine Use: Reports: Soda - Recreational Drug Use Recreational Drug Use: Yes Recreational Drug Type: Reports: Heroin, Methamphetamine ED ROS GENERAL - Review of Systems Review Of Systems: See Below ED EXAM, GENERAL - Physical Exam Exam: See Below Course - Vital Signs Last Recorded V/S: Last Vital Signs Temp 36.4 C 10/07/20 10:41 Pulse 92 10/07/20 10:41 Resp 18 10/07/20 10:41 BP 126/79 10/07/20 10:41 Pulse Ox 96 10/07/20 10:41 Departure - Departure Time of Disposition: 10:18 Disposition: Home, Self-Care 01 Condition: Good Clinical Impression: Encounter for medical screening examination - Discharge Information *PRESCRIPTION DRUG MONITORING PROGRAM REVIEWED*: No *COPY OF PRESCRIPTION DRUG MONITORING REPORT IN PATIENT GA: No Instructions: Medical Screening Exam Referrals: PCP,None [Primary Care Provider] - Forms: ED Department Discharge Additional Instructions: You were evaluated today on an emergent basis. At this time you are medically cleared. If you have any further issues or need assistance attending please return to the emergency department. Please follow-up with your primary care physician. [facility] - [facility] [address] [place] [address] [place] [address] The patient is informed of any results of their evaluation and diagnostic workup and all questions are answered. They are given discharge instructions and return precautions. The patient is stable for discharge. The patient states they understand and agree with the plan and that they will return if their symptoms get worse or if they have any new concerns. The following information is given to patients seen in the emergency department who are being discharged to home. This information is to outline your options f or follow-up care. We provide all patients seen in our emergency department with a follow-up referral. The need for follow-up, as well as the timing and circumstances, are variable depending upon the specifics of your emergency department visit. If you don't have a primary care physician on staff, we will provide you with a referral. We always advise you to contact your personal physician following an emergency department visit to inform them of the circumstance of the visit and for follow-up with them and/or the need for any referrals to a consulting specialist. The emergency department will also refer you to a specialist when appropriate. This referral assures that you have the opportunity for follow-up care with a specialist. All of these measure are taken in an effort to provide you with optimal care, which includes your follow-up. Under all circumstances we always encourage you to contact your private physician who remains a resource for coordinating your care. When calling for follow-up care, please make the office aware that this follow-up is from your recent emergency room visit. If for any reason you are refused follow-up, please contact the [facility] Emergency Department at and asked to speak to the emergency department charge nurse. Sepsis Event Note (ED) - Evaluation Sepsis Screening Result: No Definite Risk
[2020-10-07 12:52] VITALS: BP 126/79; PULSE 92
== END 2020-10-07 10:41 | disposition home or self-care (01) ==
LOC: MW.ED 09:53
DX: Z00.00 Encounter for general adult medical examination without abnormal findings (principal); Z86.73 Personal history of transient ischemic attack (TIA), and cerebral infarction without residual deficits; Z72.0 Tobacco use
CPT/HCPCS: 99283

== ENCOUNTER 2020-10-25 22:58 | Emergency (ER) | payer OTHER, MEDICAID ==
[2020-10-25] MEDS: Aspirin 81 MG Tab.Chew PO ONE (23:28)
[2020-10-25 23:38] LABS: BLOOD UREA NITROGEN,BUN 10 mg/dL (7.0-18.0); CARBON DIOXIDE,CO2 28.3 mmol/L (21.0-32.0); CHLORIDE,CL 104 mmol/L (98-107); GLUCOSE RANDOM 121 mg/dL (74-106); POTASSIUM,K 3.9 mmol/L (3.5-5.1); SODIUM,NA 141 mmol/L (136-148)
[2020-10-26] MEDS ORDERED: Iopamidol 755 MG/ML 500 ML Multipack Bottle IVPUSH STA (00:09)
--- NOTE | 2020-10-26 00:19 | CR ---
Indication: Chest pain Technique: Chest 1 view Comparison: September 27, 2019 Findings/Impression: Cardiovascular and mediastinum: Heart size and vasculature are normal in caliber and appearance. Mediastinum is within normal limits. Lungs and pleural space: Lungs are clear. No sign of infiltrate or mass. No sign of pleural effusion. No pneumothorax. Bones and soft tissues: No significant findings. Dictated by Patsy Regan MD @ Oct 26 2020 12:16AM Signed by Dr. Patsy Regan @ Oct 26 2020 12:17AM
--- NOTE | 2020-10-26 01:19 | CT ---
Indication: Left-sided tearing chest pain radiating to back and bilateral shoulders Technique: Contrast-enhanced imaging through the chest and abdomen acquired in the angiographic phase of enhancement. 100 mL Isovue 370 contrast agent was administered. Sagittal and coronal reconstructions are provided. Comparison: None Findings: Aorta: Motion artifact somewhat limits assessment the aortic root. There is normal caliber of the thoracic aorta. There is no evidence of aortic dissection. The great arch branch vessel origins are patent. The abdominal aorta is normal in caliber. The celiac axis, superior mesenteric artery, renal arteries, and inferior mesenteric artery are patent and demonstrate no significant stenosis. Chest: There is adequate opacification of the pulmonary arterial tree without evidence of thromboembolism. The main pulmonary artery is nonenlarged. The heart is normal in size. There is no pericardial effusion. There is no mediastinal lymphadenopathy. The lungs are clear. Subpleural bullous changes are noted in the lung apices, more pronounced on the right. There is no pleural effusion or pneumothorax. Abdomen: There is no significant abnormality relating to the liver, gallbladder, spleen, pancreas, adrenal glands, or kidneys. The stomach and visualized small bowel and colon are unremarkable. There is no abdominal lymphadenopathy. The osseous structures are unremarkable. Impression: No acute process demonstrated in the chest and abdomen. No evidence of aortic aneurysm or dissection. Please note that all CT scans at this facility use dose modulation, iterative reconstruction, and/or weight-based dosing when appropriate to reduce radiation dose to as low as reasonably achievable. Dictated by Farhat Saul MD @ Oct 26 2020 1:16AM Signed by Dr. Farhat Saul @ Oct 26 2020 1:17AM
--- NOTE | 2020-10-26 01:50 | EDM.PDOC ---
ED HPI GENERAL MEDICAL PROBLEM - General Chief Complaint: Chest Pain Stated Complaint: CHEST PAIN Time Seen by Provider: 10/25/20 23:19 - History of Present Illness INITIAL COMMENTS - FREE TEXT/NARRATIVE: CHIEF COMPLAINT(S): Chest pain HISTORY OF PRESENT ILLNESS: This is a 50-year-old man with a prior history of IV methamphetamine who comes to the emergency department with a chief complaint of chest pain. The patient states that prior to arrival he started to experience chest pain which he describes as ripping, 8-9 out of 10 located on the left side of his chest with bilateral shoulder throbbing. He states that he did have hot flashes but no diaphoresis when this happened. He states that he does feel short of breath and weak. He denies any syncope. States that the pain is mildly worse when he lays flat but does not report any improvement when sitting forward. He states that he took Tylenol without any relief. He denies any associated nausea, vomiting, numbness, tingling, weakness, headache. He denies any history of aortic aneurysm or dissection. He denies any recent travel, recent surgery or prior history of DVT or PE. He denies any personal history of CAD. REVIEW OF SYSTEMS: Constitutional: Denies fever, chills. Eyes: Denies eye pain Ears, Nose, Mouth, & Throat: Denies earache Cardiovascular: Positive for left-sided chest pain Respiratory: Positive for shortness of breath. Gastrointestinal: Denies Nausea, vomiting, diarrhea, hematochezia. Genitourinary: Denies hematuria Skin:Denies a rash MSK: Denies joint pain Neurological: Denies blurred vision, numbness, tingling, weakness Psychiatric: Denies depression PAST MEDICAL HISTORY: As per history of present illness and as reviewed below otherwise noncontributory. SURGICAL HISTORY: As per history of present illness and as reviewed below otherwise noncontributory. SOCIAL HISTORY: As per history of present illness and as reviewed below otherwise noncontributory. FAMILY HISTORY: As per history of present illness and as reviewed below otherwise noncontributory. EXAMINATION OF ORGAN SYSTEMS/BODY AREAS: Constitutional: Blood pressure was 135/76, heart rate 76, respiratory rate 18 with an oxygen saturation 98% on room air. Temperature 36.8 General: Overall well-appearing man who is in no acute distress. Psychiatric: Appropriate mood and affect. Eyes: No scleral icterus or conjunctival erythema ENMT: Moist mucous membranes. No pharyngeal erythema Cardiovascular: Regular, rate, and rhythm. No gallops, murmurs, or rubs. Bilateral upper extremity pulses symmetric and intact. No peripheral edema. No JVD. Respiratory: Lungs clear to auscultation bilaterally. No wheezes, rales, or rhonchi. Gastrointestinal: Soft, non-tender, non-distended. Normoactive bowel sounds Genitourinary: No suprapubic tenderness Musculoskeletal: Normal range of motion. Skin: No lesions or abrasions. Neurological: Alert, GCS 15 MEDICAL DECISION MAKING AND COURSE IN THE ED WITH INTERPRETATION/REVIEW OF DIAGNOSTIC STUDIES: This is a 50-year-old man with a past medical history of IV methamphetamine abuse and recent incarceration with multiple ER visits recently for chest pain who comes to the emergency department with chest pain who has normal vital signs. At this time given his description of chest pain will evaluate with CTA of the chest and abdomen to evaluate for dissection or aneurysm. I did review the patient's chart prior as I have seen this patient multiple times and he did have an exercise stress test in 2019 which was negative and an echocardiogram at that time which also was negative. EKG was obtained which did not reveal any acute signs of ischemia. We will obtain cardiac work-up and place the patient on cardiac monitoring and pulse oximetry. We will hold off on aspirin administration at this time until CTAs are complete. Laboratory: CBC reveals a leukocytosis of 13.43 with neutrophilic predominance . Thrombocytosis with a platelet count of 413. BMP is unremarkable. Magnesium is normal. Troponin x2 is negative. The radiological images were viewed by myself along with reading the report from the radiologist. Chest x-ray does not reveal any acute cardiopulmonary process. CTA of the thorax, abdomen and pelvis does not reveal any acute process in the chest or abdomen with no evidence of aortic aneurysm or dissection. After initial troponin we did provide the patient with aspirin by mouth. Given the patient's second troponin is negative I did discuss with patient he would be stable for discharge back to residential. He is to follow-up with cardiology as previously discussed. He was placed on the cardiac follow-up list. He is to return for any new or worsening symptoms. DISPOSITION: The patient was discharged home in stable condition. The patient will follow up with cardiology within 2 to 3 days CONDITION: Fair PROCEDURES: None FINAL IMPRESSION(S)/DIAGNOSES: 1. Acute chest pain Ranjit Ivan M.D. Chest Pain Score (Numeric/FACES): 9 - Related Data Allergies Allergy/AdvReac Type Severity Reaction Status Date / Time No Known Allergies Allergy Verified 10/25/20 23:11 Home Meds: Home Meds . [No Known Home Meds] 03/12/17 [History] Past Medical History - Past Health History Medical/Surgical History: Denies Medical/Surgical History HEENT History: Reports: Other (See Below) Other HEENT History: blind in left eye Cardiovascular History: Reports: Other (See Below) Other Cardiovascular History: "fluid around the heart" Respiratory History: Reports: None Gastrointestinal History: Reports: None Genitourinary History: Reports: None Musculoskeletal History: Reports: None Neurological History: Reports: CVA Psychiatric History: Reports: None Endocrine/Metabolic History: Reports: None Hematologic History: Reports: None Immunologic History: Reports: None Oncologic (Cancer) History: Reports: None Dermatologic History: Reports: None - Infectious Disease History Infectious Disease History: Reports: Chicken Pox, Shingles - Past Surgical History HEENT Surgical History: Reports: Other (See Below) Other HEENT Surgeries/Procedures: lens removal left eye Cardiovascular Surgical History: Reports: None Social & Family History - Family History Family Medical History: No Pertinent Family History - Tobacco Use Tobacco Use Status *Q: Current Some Day Tobacco User Years of Tobacco use: 20 Packs/Tins Daily: 0.5 - Caffeine Use Caffeine Use: Reports: None - Recreational Drug Use Recreational Drug Use: Yes Recreational Drug Type: Reports: Heroin Recreational Drug Use Frequency: Daily ED ROS GENERAL - Review of Systems Review Of Systems: See Below ED EXAM, GENERAL - Physical Exam Exam: See Below Course - Vital Signs Last Recorded V/S: Last Vital Signs Temp 36.8 C 10/26/20 02:01 Pulse 72 10/26/20 02:01 Resp 18 10/26/20 02:01 BP 108/70 10/26/20 02:01 Pulse Ox 98 10/26/20 02:01 - Orders/Labs/Meds Labs: Laboratory Tests 10/25/20 10/25/20 10/26/20 Range/Units 23:07 23:07 01:25 WBC 13.43 H (4.0-11.0) K/uL RBC 5.12 (4.50-5.90) M/uL Hgb 14.7 (13.0-17.0) g/dL Hct 44.9 (38.0-50.0) % MCV 87.7 (80.0-98.0) fL MCH 28.7 (27.0-32.0) pg MCHC 32.7 (31.0-37.0) g/dL RDW Std Deviation 48.9 (28.0-62.0) fl RDW Coeff of Liat 15 (11.0-15.0) % Plt Count 413 H (150-400) K/uL MPV 9.20 (7.40-12.00) fL Add Manual Diff YES Neutrophils % (Manual) 45 L (48.0-80.0) % Lymphocytes % (Manual) 39 (16.0-40.0) % Monocytes % (Manual) 15 (0.0-15.0) % Eosinophils % (Manual) 1 (0.0-7.0) % Nucleated RBC % 0.0 /100WBC Absolute Seg Neuts 6.0 H (1.4-5.7) Lymphocytes # (Manual) 5.2 H (0.6-2.4) Monocytes # (Manual) 2.0 H (0.0-0.8) Eosinophils # (Manual) 0.1 (0.0-0.7) Nucleated RBCs # 0 K/uL Sodium 141 (136-148) mmol/L Potassium 3.9 (3.5-5.1) mmol/L Chloride 104 (98-107) mmol/L Carbon Dioxide 28.3 (21.0-32.0) mmol/L BUN 10 (7.0-18.0) mg/dL Creatinine 1.2 (0.8-1.3) mg/dL Est Cr Clr Drug Dosing 73.65 mL/min Estimated GFR (MDRD) > 60.0 ml/min Glucose 121 H (74-106) mg/dL Calcium 9.2 (8.5-10.1) mg/dL Magnesium 2.1 (1.8-2.4) mg/dL Troponin I < 0.050 < 0.050 (0.000-0.056) ng/mL Meds: Medications Discontinued Medications Generic Name Dose Route Start Last Admin Trade Name Freq PRN Reason Stop Dose Admin Aspirin 324 mg 10/25/20 23:22 10/26/20 02:04 Aspirin PO 10/25/20 23:23 324 mg ONETIME ONE Administration Aspirin Confirm 10/26/20 02:01 10/26/20 02:03 Aspirin Administered 10/26/20 02:02 Not Given Dose 324 mg .ROUTE .STK-MED ONE Iopamidol 100 ml 10/26/20 00:09 10/26/20 00:10 Isovue Multipack-370 (76%) IVPUSH 10/26/20 00:10 100 ml ONETIME STA Administration Departure - Departure Time of Disposition: 01:54 Disposition: Home, Self-Care 01 Condition: Fair Clinical Impression: Atypical chest pain - Discharge Information *PRESCRIPTION DRUG MONITORING PROGRAM REVIEWED*: No *COPY OF PRESCRIPTION DRUG MONITORING REPORT IN PATIENT GA: No Instructions: Nonspecific Chest Pain, Adult, [id number] Referrals: PCP,None [Primary Care Provider] - Mehrdad Marie MD [Physician] - Forms: ED Department Discharge Additional Instructions: You were evaluated today on emergent basis. At this time your work-up was negative. It is uncertain as to what is causing your chest pain however I do recommend follow-up with cardiology as we discussed on your last visit. Numbers provided below. You should follow-up within 2 to 3 days. If you have any new or worsening symptoms please return to the emergency department. Differential at this time does include musculoskeletal pain. I do recommend the use of Tylenol and Motrin as needed for pain relief. The patient is informed of any results of their evaluation and diagnostic workup and all questions are answered. They are given discharge instructions and return precautions. The patient is stable for discharge. The patient states they understand and agree with the plan and that they will return if their symptoms get worse or if they have any new concerns. The following information is given to patients seen in the emergency department who are being discharged to home. This information is to outline your options for follow-up care. We provide all patients seen in our emergency department with a follow-up referral. The need for follow-up, as well as the timing and circumstances, are variable depending upon the specifics of your emergency department visit. If you don't have a primary care physician on staff, we will provide you with a referral. We always advise you to contact your personal physician following an emergency department visit to inform them of the circumstance of the visit and for follow-up with them and/or the need for any referrals to a consulting specialist. The emergency department will also refer you to a specialist when appropriate. This referral assures that you have the opportunity for follow-up care with a specialist. All of these measure are taken in an effort to provide you with optimal care, which includes your follow-up. Under all circumstances we always encourage you to contact your private physician who remains a resource for coordinating your care. When calling for follow-up care, please make the office aware that this follow-up is from your recent emergency room visit. If for any reason you are refused follow-up, please contact the [facility] Emergency Department at and asked to speak to the emergency department charge nurse. Sepsis Event Note (ED) - Evaluation Sepsis Screening Result: No Definite Risk
[2020-10-26] MEDS ORDERED: Aspirin 81 MG Tab.Chew ONE (02:01)
[2020-10-26] MEDS: Aspirin 81 MG Tab.Chew PO ONE (02:04)
[2020-10-26 02:12] VITALS: BP 108/70; PULSE 72
--- NOTE | 2020-10-26 02:57 | PCM.EKG ---
#1 Interpretation EKG Date: 10/25/20 Time: 22:58 Rhythm: NSR Rate (Beats/Min): 94 [place]: Normal P-Wave: Present QRS: Normal ST-T: Normal QT: Normal Comparison: No Change (09/27/20) EKG Interpretation Comments: Sinus Rhythm
== END 2020-10-26 02:09 | disposition home or self-care (01) ==
LOC: MW.ED 22:58
DX: R07.89 Other chest pain (principal); Z72.0 Tobacco use; Z86.73 Personal history of transient ischemic attack (TIA), and cerebral infarction without residual deficits
CPT/HCPCS: 36415; 71045; 71275; 74175; 80048; 83735; 84484; 85025; 93005; 99285; A9270; Q9967; 93010; 99283